=== PATIENT | male | born 1960 | race Caucasian/White ===

== ENCOUNTER 2018-01-18 01:05 | Outpatient (CLI) | payer MEDICAID, SELFPAY ==
--- NOTE | 2018-01-18 08:34 | DI.US_ITS ---
SYMPTOMS/DIAGNOSIS: FATTY LIVER, K76.0 ABDOMINAL ULTRASOUND: Routine examination. Comparison is 02/07/17. The aorta and IVC are of normal caliber. The liver is enlarged measuring 19 cm in length. There is diffuse increased echogenicity of the liver consistent with fatty infiltration. No hepatic masses seen. The portal vein is antegrade. The gallbladder is negative sonographically. No biliary ductal dilatation is seen. The pancreas, kidneys and spleen are unremarkable. IMPRESSION: Hepatomegaly and hepatic steatosis.
== END 2018-01-18 01:25 ==
PROVIDERS: PCP Nurse Practitioner Family; Visit Provider Nurse Practitioner Family
DX: K76.0 Fatty (change of) liver, not elsewhere classified (principal); R16.0 Hepatomegaly, not elsewhere classified
CPT/HCPCS: 76700

== ENCOUNTER 2018-05-30 09:31 | Outpatient (REF) | payer MEDICAID, SELFPAY ==
[2018-05-30 13:04] LABS: ALT 35 U/L (12-78); AST 18 U/L (15-37); Alkaline Phosphatase 78 U/L (46-116); Anion Gap 7.8 mmol/L (3-11); BUN 14 mg/dL (7-18); Bilirubin, Total 0.6 mg/dL (0.2-1.0); CO2 25.2 mmol/L (21.0-32.0); CREATININE 0.85 mg/dL (0.70-1.30); Chloride 105 mmol/L (98-107); Ferritin 177 ng/mL (8-388); Glucose 100 mg/dL (70-100); Potassium 4.7 mmol/L (3.5-5.1); Sodium 138 mmol/L (136-145); TSH (W/Ref FT4) 0.59 uIU/mL (0.358-3.74); Total Protein 6.9 g/dL (6.4-8.2); Vitamin B12 553 pg/mL (193-986)
[2018-05-31 09:51] LABS: Hepatitis C Ab w Rflx HCV PCR Negative (NEGAT)
== END 2018-05-30 09:51 ==
LOC: NCHCN 09:31
PROVIDERS: PCP Nurse Practitioner Family; Visit Provider Nurse Practitioner Family
DX: I10 Essential (primary) hypertension (principal); E78.5 Hyperlipidemia, unspecified; K21.9 Gastro-esophageal reflux disease without esophagitis; K76.0 Fatty (change of) liver, not elsewhere classified; E04.1 Nontoxic single thyroid nodule; F41.9 Anxiety disorder, unspecified; G47.33 Obstructive sleep apnea (adult) (pediatric); M54.2 Cervicalgia; Z11.59 Encounter for screening for other viral diseases; M25.50 Pain in unspecified joint
CPT/HCPCS: 80053; 86803; 82607; 82728; 83735; 84443

== ENCOUNTER 2018-06-06 00:17 | Outpatient (CLI) | payer MEDICAID, SELFPAY ==
--- NOTE | 2018-06-06 08:16 | DI.US_ITS ---
SYMPTOM/DIAGNOSIS: FAMILY H/O AAA, Z82.49, SCREENING FOR AAA AORTA ULTRASOUND: Sonographic evaluation of the abdominal aorta was performed. There is no evidence of an abdominal aortic aneurysm. Maximum diameter of the abdominal aorta is seen proximally and is 2.2 cm. The right iliac measures 1.4 by 1.3 cm. The left iliac measures 1.6 by 1.1 cm. IMPRESSION: No evidence of an abdominal aortic aneurysm.
== END 2018-06-06 00:37 ==
PROVIDERS: PCP Nurse Practitioner Family; Visit Provider Nurse Practitioner Family
DX: Z13.6 Encounter for screening for cardiovascular disorders (principal); Z82.49 Family history of ischemic heart disease and other diseases of the circulatory system
CPT/HCPCS: 76706

== ENCOUNTER 2019-04-18 08:46 | Outpatient (REF) | payer MEDICAID, SELFPAY ==
[2019-04-18 13:50] LABS: ALT 49 U/L (16-63); AST 31 U/L (15-37); Albumin 3.8 g/dL (3.4-5.0); Alkaline Phosphatase 66 U/L (46-116); Anion Gap 10.5 mmol/L (3-11); BUN 15 mg/dL (7-18); Bilirubin, Total 0.6 mg/dL (0.2-1.0); CO2 25.5 mmol/L (21.0-32.0); CREATININE 0.89 mg/dL (0.70-1.30); Calcium 8.8 mg/dL (8.5-10.1); Chloride 106 mmol/L (98-107); Glucose 101 mg/dL (74-106); Magnesium 1.8 mg/dL (1.8-2.4); Potassium 4.3 mmol/L (3.5-5.1); Sodium 142 mmol/L (136-145); TSH (W/Ref FT4) 0.76 uIU/mL (0.36-3.74); Total Protein 6.3 g/dL (6.4-8.2); Vitamin B12 445 pg/mL (193-986)
== END 2019-04-18 09:06 ==
LOC: NCHCN 08:46
PROVIDERS: PCP Nurse Practitioner Family; Visit Provider Nurse Practitioner Family
DX: R53.83 Other fatigue (principal); F41.9 Anxiety disorder, unspecified; K76.0 Fatty (change of) liver, not elsewhere classified; E04.1 Nontoxic single thyroid nodule; M54.2 Cervicalgia; G47.33 Obstructive sleep apnea (adult) (pediatric); E66.3 Overweight
CPT/HCPCS: 80053; 82607; 83735; 84443

== ENCOUNTER 2019-07-22 09:55 | Outpatient (CLI) | payer MEDICAID, SELFPAY ==
[2019-07-26 00:05] LABS: SARS-CoV-2 RNA Undetected (Undetected); SARS-CoV-2 Specimen Source Nasopharynx
== END 2019-07-22 10:15 ==
PROVIDERS: PCP Nurse Practitioner Family; Visit Provider Nurse Practitioner Family
DX: Z11.59 Encounter for screening for other viral diseases (principal)
CPT/HCPCS: U0003

== ENCOUNTER 2019-11-12 00:34 | Outpatient (CLI) | payer MEDICAID, SELFPAY ==
--- NOTE | 2019-11-12 | DI.US_ITS ---
EXAM: US ABDOMEN CLINICAL HISTORY: FATTY LIVER, K76.0 TECHNIQUE: Ultrasound performed using standard protocol. COMPARISON: No exams were available for comparison FINDINGS: The liver is enlarged, measuring 17.9 cm in length. There is mild diffuse increased liver echogenic ity, consistent with hepatic steatosis. Gallbladder is unremarkable, without evidence of stones or w all thickening. There is no biliary dilatation. Pancreas, spleen and kidneys are unremarkable. The re is no ascites. IMPRESSION: Mildly enlarged liver with mild hepatic steatosis. DATA REPOSITORY:
== END 2019-11-12 00:54 ==
PROVIDERS: PCP Nurse Practitioner Family; Visit Provider Nurse Practitioner Family
DX: K76.0 Fatty (change of) liver, not elsewhere classified (principal)
CPT/HCPCS: 76700

== ENCOUNTER 2020-04-27 09:46 | Outpatient (REF) | payer MEDICAID, SELFPAY ==
[2020-04-27 13:43] LABS: Abs Immature Grans 0.01 10^3/uL (0.0-0.06); Absolute Basophil Count 0.03 10^3/uL (0.0-0.2); Absolute Eosinophil Count 0.27 10^3/uL (0.0-0.7); Absolute Lymphocyte Count 0.99 10^3/uL (1.2-3.4); Absolute Monocyte Count 0.69 10^3/uL (0.1-0.8); Basophils % 0.5; Eosinophils % 4.8; HCT 44.5 % (40.0-50.0); HGB 15.2 g/dL (13.5-17.5); Immature Grans % 0.2; Lymphocytes % 17.7; MCH 30.2 pg (27.0-33.0); MCHC 34.2 % (32.0-36.0); MCV 88.5 fL (80-95); Monocytes % 12.3; Neutrophils % 64.5; Nucleated RBC 0 %; Platelet Count 255 10^3/uL (130-400); RBC 5.03 10^6/uL (4.36-5.78); RDW-SD 39.3 fL; WBC 5.59 10^3/uL (4.4-10.8)
[2020-04-27 14:19] LABS: ALT 35 U/L (16-63); AST 18 U/L (15-37); Albumin 3.9 g/dL (3.4-5.0); Alkaline Phosphatase 76 U/L (46-116); Anion Gap 9.8 mmol/L (3-11); BUN 16 mg/dL (7-18); Bilirubin, Total 0.6 mg/dL (0.2-1.0); CO2 24.2 mmol/L (21.0-32.0); CREATININE 0.95 mg/dL (0.70-1.30); Calcium 8.5 mg/dL (8.5-10.1); Chloride 106 mmol/L (98-107); FREE T4 0.82 ng/dL (0.76-1.46); Glucose 102 mg/dL (74-106); Magnesium 1.9 mg/dL (1.8-2.4); Potassium 4.3 mmol/L (3.5-5.1); Sodium 140 mmol/L (136-145); TSH 0.48 uIU/mL (0.36-3.74); Total Protein 6.3 g/dL (6.4-8.2)
[2020-04-27 14:57] LABS: Vitamin B12 508 pg/mL (193-986)
[2020-04-27 21:37] LABS: T3,Free 3.5 pg/mL (2.8-5.3)
== END 2020-04-27 10:06 ==
LOC: NCHCN 09:46
PROVIDERS: PCP Nurse Practitioner Family; Visit Provider Nurse Practitioner Family
DX: I10 Essential (primary) hypertension (principal); E04.1 Nontoxic single thyroid nodule; F41.9 Anxiety disorder, unspecified; K76.0 Fatty (change of) liver, not elsewhere classified; K21.9 Gastro-esophageal reflux disease without esophagitis; G47.33 Obstructive sleep apnea (adult) (pediatric); M54.2 Cervicalgia
CPT/HCPCS: 80053; 82607; 83735; 84439; 84443; 84481; 85025

== ENCOUNTER 2020-05-06 02:54 | Outpatient (CLI) | payer MEDICAID, SELFPAY ==
--- NOTE | 2020-05-06 | DI.US_ITS ---
EXAM: US AAA SCREENING CLINICAL HISTORY: SCREENING FOR AAA, FAMILY H/O AAA,Z82.49 COMPARISON: US US AAA screening from 06/06/2018 FINDINGS: Abdominal Aorta: Proximal: 2.5 x 2.7 cm Mid: 2.7 x 2.6 cm Distal: 2.2 x 2.1 cm Iliac's: Right: 1.3 x 1.6 cm Left: 1.2 x 1.7 cm Mild atherosclerotic disease. IMPRESSION: No evidence of abdominal aortic aneurysm. DATA REPOSITORY:
--- NOTE | 2020-05-06 | DI.US_ITS ---
EXAM: US THYROID CLINICAL HISTORY: THYROID NODULE, E04.1. TECHNIQUE: Ultrasound thyroid performed using standard protocol. COMPARISON: No exams were available for comparison FINDINGS: ISTHMUS: 5 mm RIGHT LOBE: Size: 4.1 x 1.5 x 1.3 cm Echogenicity: Normal. Vascularity: Normal. Nodules: There is a 0.6 x 0.4 x 0.4 cm solid hypoechoic well-marginated nodule in the lower pole of t he right lobe. No echogenic foci are seen. This corresponds to a TI-RADs level 4 nodule. LEFT LOBE: Size: 5.5 x 2.7 x 3.7 cm Echogenicity: Normal. Vascularity: Normal. Nodules: There is a mixed cystic and solid 3.5 x 2.4 x 3.8 cm nodule. The solid components appear is oechoic. The margins are well circumscribed. There do appear to be few echogenic foci noted. This corresponds to a TI-RADs level 4 nodule. OTHER FINDINGS: None. IMPRESSION: Bilateral thyroid nodules as described above. DATA REPOSITORY:
== END 2020-05-06 03:14 ==
PROVIDERS: PCP Nurse Practitioner Family; Visit Provider Nurse Practitioner Family
DX: Z82.49 Family history of ischemic heart disease and other diseases of the circulatory system (principal); E04.2 Nontoxic multinodular goiter
CPT/HCPCS: 76706; 76536

== ENCOUNTER 2020-06-28 00:49 | Outpatient (CLI) | payer MEDICAID, SELFPAY ==
--- NOTE | 2020-06-28 | DI.US_ITS ---
EXAM: US NEEDLE LOCAL OTHER WO RAD CLINICAL HISTORY: LT THYROID NODULE, E04.1,ULTRASOUND GUIDED FINE NEEDLE ASPIRATION. COMPARISON: US US THYROID from 05/06/2020 Procedure: Ultrasound guidance was provided during left thyroid nodule FNA. Radiologist not present . FINDINGS: IMPRESSION: DATA REPOSITORY:
--- NOTE | 2020-06-28 08:15 | PAPNONF_PTH ---
PATIENT: Moisés Lantigua LOC: [facility] U#:[id number] AGE/SX: 59/M ROOM: RE06/28/[address]: Jian Ryan MD : 1960 BED: DIS: 06/28/2020 SPEC #: [id number] RECD: 06/28/20 12:55 STATUS: LINO REMaya #: [id number] CANDI: 06/28/20 08:[address]: Jian Ryan DEPT: [facility] Cytology RECD BY: Dixie Rosado ENTERED: 06/28/20 12:55 SP TYPE: HUSAM STORM DR: Trudi Irby Tissues: 1 - BODY FLUID CYTO-FINE NEEDLE ASPIRATE-[facility] Procedures: BODY FLUID CYTO-FINE NEEDLE ASPIRATE-[facility] Comments: [id number]
--- NOTE | 2020-06-28 12:55 | OPPNE_ITS ---
Procedure Note Date of procedure: 06/28/20 Procedure: Ultrasound-guided FNA of the left thyroid nodule with pathologist present Surgeon/Proceduralist/Physician: Jian Ryan Procedure Diagnosis: Left thyroid complex nodule Procedure Indications: The patient has a left-sided large thyroid nodule that is mixed cystic/solid. Previous FNA was nondiagnostic. Options were explained to the patient regarding further management. Risks were discussed. Consent was obtained. The below was then performed. Procedure Description: The patient was positioned in the supine position and prepped and draped in appropriate fashion. The left thyroid nodule was identified using ultrasound, and then the skin anesthetized medial to the thyroid nodule. Multiple passes were made with 25- gauge 1.5Inch needles and the specimen was handed to pathology. I was able to obtain 5 clusters of cells based on pathology evaluation, and then I also performed a Secondary aspiration of material for CytoLyt. This was also provided to the pathologist. Of note, these biopsies were complicated by the cystic and vascular quality of this nodule, which continue to be an issue despite trying to obtain specimens from different locations within the nodule. The patient tolerated procedure well. His vital signs remained stable. Bleeding was minimal and self-limited. There was no significant bruising. A sterile dressing was applied. The patient was able to ambulate afterwards without difficulty. There was no evidence of hematoma.
== END 2020-06-28 01:09 ==
PROVIDERS: PCP Nurse Practitioner Family; Visit Provider Otolaryngology
DX: E04.1 Nontoxic single thyroid nodule (principal)
CPT/HCPCS: 10005; 88142; 76942; 88104

== ENCOUNTER 2020-11-29 02:45 | Outpatient (CLI) | payer MEDICAID, SELFPAY ==
[2020-11-29 12:37] LABS: Source Nasal/Nares
[2020-11-29 15:35] LABS: COVID-19 PCR Negative (Negative)
== END 2020-11-29 02:46 | disposition home or self-care (01) ==
PROVIDERS: PCP Nurse Practitioner Family; Visit Provider Podiatrist Foot & Ankle Surgery
DX: Z20.822 Contact with and (suspected) exposure to COVID-19 (principal); Z01.818 Encounter for other preprocedural examination
CPT/HCPCS: 87635

== ENCOUNTER 2021-05-02 15:21 | Outpatient (REF) | payer MEDICAID, SELFPAY ==
[2021-05-02 16:02] LABS: Abs Immature Grans 0.02 10^3/uL (0.0-0.06); Absolute Basophil Count 0.04 10^3/uL (0.0-0.2); Absolute Eosinophil Count 0.16 10^3/uL (0.0-0.7); Absolute Lymphocyte Count 0.97 10^3/uL (1.2-3.4); Absolute Monocyte Count 0.55 10^3/uL (0.1-0.8); Absolute Neutrophil Count 3.39 10^3/uL (1.2-6.7); Basophils % 0.8; Eosinophils % 3.1; HCT 45.8 % (40.0-50.0); HGB 15.3 g/dL (13.5-17.5); Immature Grans % 0.4; Lymphocytes % 18.9; MCH 29.9 pg (27.0-33.0); MCHC 33.4 % (32.0-36.0); MCV 89.6 fL (80-95); MPV 10.2 fL (8.0-11.0); Monocytes % 10.7; Neutrophils % 66.1; Nucleated RBC 0 %; Platelet Count 259 10^3/uL (130-400); RBC 5.11 10^6/uL (4.36-5.78); RDW-SD 39.6 fL; WBC 5.13 10^3/uL (4.4-10.8)
[2021-05-02 16:46] LABS: ALT 38 U/L (16-63); AST 17 U/L (15-37); Albumin 4.1 g/dL (3.4-5.0); Alkaline Phosphatase 70 U/L (46-116); Anion Gap 9.7 mmol/L (3-11); BUN 19 mg/dL (7-18); Bilirubin, Total 0.5 mg/dL (0.2-1.0); CO2 23.3 mmol/L (21.0-32.0); CREATININE 0.9 mg/dL (0.70-1.30); Calcium 8.8 mg/dL (8.5-10.1); Chloride 106 mmol/L (98-107); Glucose 106 mg/dL (74-106); Magnesium 1.8 mg/dL (1.8-2.4); Potassium 4.2 mmol/L (3.5-5.1); Sodium 139 mmol/L (136-145); TSH 0.52 uIU/mL (0.36-3.74); Total Protein 6.5 g/dL (6.4-8.2); Vitamin B12 478 pg/mL (193-986)
[2021-05-02 17:04] LABS: FREE T4 0.83 ng/dL (0.76-1.46)
[2021-05-02 21:42] LABS: T3,Free 3.9 pg/mL (2.8-5.3)
[2021-05-02 22:33] LABS: PSA, Screening 0.6 ng/mL (0.0-4.5)
== END 2021-05-02 15:22 | disposition home or self-care (01) ==
LOC: NCHCN 15:21
PROVIDERS: PCP Nurse Practitioner Family; Visit Provider Nurse Practitioner Family
DX: I10 Essential (primary) hypertension (principal); E04.1 Nontoxic single thyroid nodule; Z12.5 Encounter for screening for malignant neoplasm of prostate; G31.84 Mild cognitive impairment of uncertain or unknown etiology; D12.6 Benign neoplasm of colon, unspecified
CPT/HCPCS: 80053; 84153; 82607; 83735; 84439; 84443; 84481; 85025

== ENCOUNTER 2021-05-30 00:18 | Outpatient (CLI) | payer MEDICAID, SELFPAY ==
--- NOTE | 2021-05-30 | DI.US_ITS ---
Exam(s) US ABDOMEN EXAM: US ABDOMEN CLINICAL HISTORY: FATTY LIVER, K76.0 TECHNIQUE: Ultrasound of complete upper abdomen performed using standard protocol. COMPARISON: US US ABDOMEN from 01/18/2018 US US AAA screening from 06/06/2018 Ultrasound 01/18/2018 FINDINGS: There is no ascites evident. LIVER: Liver is hyperechoic indicating steatosis. No obvious discrete focal hepatic lesions evident. GALLBLADDER/BILIARY: There are no gallstones. No gallbladder wall edema nor pericholecystic fluid. The common hepatic duct isnot dilated, measuring 3mm at the level of marianne hepatis. PANCREAS: There is no evidence of pancreatic mass nor dilatation of the pancreatic duct. SPLEEN: The spleen size is upper normal and there are no intrasplenic lesions evident. KIDNEYS:Kidneys exhibit normal size with no evidence of solid mass, calculus, nor hydronephrosis. No cortical cysts evident. ABDOMINAL AORTA: There is no evidence of abdominal aortic aneurysm. IVC: Normal diameter where visualized. IMPRESSION: 1. No evidence of cholelithiasis nor dilatation of the biliary tree. 2. Hepatic steatosis. Liver size also slightly prominent. There are no discrete focal hepatic lesi ons 3. There is no ascites. DATA REPOSITORY:
--- NOTE | 2021-05-30 07:54 | DI.RAD_ITS ---
Exam(s) XR CHEST 2V PA LATERAL EXAM: XR CHEST 2V PA LATERAL CLINICAL HISTORY: COUGH,R05. TECHNIQUE: 2D digital imaging was performed. COMPARISON: No exams were available for comparison FINDINGS: Heart size is normal. The mediastinum is not widened. Lungs are clear. No infiltrates nor pleural effusions. IMPRESSION: No acute pulmonary findings. DATA REPOSITORY: RADIATION DOSE DELIVERED:
== END 2021-05-30 00:38 ==
PROVIDERS: PCP Nurse Practitioner Family; Visit Provider Nurse Practitioner Family
DX: R05.8 Other specified cough (principal); K76.0 Fatty (change of) liver, not elsewhere classified; R16.0 Hepatomegaly, not elsewhere classified
CPT/HCPCS: 71046; 76700

== ENCOUNTER 2021-06-01 01:39 | Outpatient (CLI) | payer MEDICAID, SELFPAY ==
--- NOTE | 2021-06-01 06:45 | DI.MRI_ITS ---
Exam(s) MR BRAIN WO EXAM: MR BRAIN WO CLINICAL HISTORY: memory changes,mild cognitive impairment,g31.84 TECHNIQUE: Multiplanar multisequence MRI of the brain was performed. COMPARISON: No exams were available for comparison FINDINGS: The examination is limited due to patient motion artifact. VENTRICLES AND EXTRA AXIAL SPACES: Normal in size and morphology for the patient's age. MIDLINE SHIFT: None. CEREBRAL PARENCHYMA: No focus of restricted diffusion to suggest acute infarct. No space-occupying le pat identified. There are multiple areas of hyperintense signal in the white matter on the FLAIR and T2 weighted images likely reflecting chronic microvascular ischemic disease. HEMORRHAGE: None. BRAINSTEM/CEREBELLUM: Normal. CALVARIUM: Normal. VISUALIZED PARANASAL SINUSES/MASTOIDS:There is pansinusitis with mucosal thickening in the frontal si nuses, sphenoid sinuses and maxillary sinuses bilaterally. There is opacification of the ethmoid air cells. No fluid levels are present. CHIGNIK L[place] OF RASHID: Normal flow void. PITUITARY GLAND: Unremarkable. OTHER FINDINGS: None. IMPRESSION: 1. No acute infarct or intracranial mass. 2. Findings suggestive of chronic microvascular ischemic disease. 3. Pansinusitis. DATA REPOSITORY:
== END 2021-06-01 01:59 ==
PROVIDERS: PCP Nurse Practitioner Family; Visit Provider Nurse Practitioner Adult Health
DX: G31.84 Mild cognitive impairment of uncertain or unknown etiology (principal); R90.82 White matter disease, unspecified; J32.4 Chronic pansinusitis; I67.2 Cerebral atherosclerosis
CPT/HCPCS: 70551

== ENCOUNTER 2021-07-05 00:52 | Outpatient (CLI) | payer MEDICAID, SELFPAY ==
--- NOTE | 2021-07-05 07:15 | DI.US_ITS ---
Exam(s) US THYROID EXAM: US THYROID CLINICAL HISTORY: Thyroid nodule, assess stability,e04.1. TECHNIQUE: Ultrasound thyroid performed using standard protocol. COMPARISON: US US THYROID from 05/06/2020 FINDINGS: ISTHMUS: 5 mm RIGHT LOBE: Size: 5.5 x 1.5 x 1.4 cm cm Echogenicity: Normal. Vascularity: Normal. Nodules: 8 x 5 x 5 millimeter hypoechoic nodule lower pole, not well demonstrated on the current exam . Too small to characterize.. LEFT LOBE: Size: 5.7 x 4.1 x 4.6 cm cm Echogenicity: Normal. Vascularity: Normal. Nodules: 3.8 x 3.0 x 4 centimeter circumscribed, mixed solid and cystic nodule containing echogenic f oci. TR 4. No new nodules. OTHER FINDINGS: No adenopathy. IMPRESSION: Stable appearance of large nodule in the left lobe of the thyroid.. DATA REPOSITORY:
== END 2021-07-05 01:12 ==
PROVIDERS: PCP Nurse Practitioner Family; Visit Provider Otolaryngology
DX: E04.1 Nontoxic single thyroid nodule (principal)
CPT/HCPCS: 76536

== ENCOUNTER 2022-03-02 11:23 | Outpatient (REF) | payer MEDICAID, SELFPAY ==
[2022-03-02 14:40] LABS: Abs Immature Grans 0.01 10^3/uL (0.0-0.06); Absolute Basophil Count 0.04 10^3/uL (0.0-0.2); Absolute Eosinophil Count 0.28 10^3/uL (0.0-0.7); Absolute Lymphocyte Count 0.97 10^3/uL (1.2-3.4); Absolute Neutrophil Count 2.89 10^3/uL (1.2-6.7); Basophils % 0.8; Eosinophils % 5.7; HCT 44.9 % (40.0-50.0); HGB 15.2 g/dL (13.5-17.5); Immature Grans % 0.2; Lymphocytes % 19.8; MCH 30.1 pg (27.0-33.0); MCHC 33.9 % (32.0-36.0); MCV 89 fL (80-95); MPV 9.7 fL (8.0-11.0); Monocytes % 14.3; Neutrophils % 59.2; Platelet Count 256 10^3/uL (130-400); RBC 5.05 10^6/uL (4.36-5.78); RDW 12.1 % (11.8-14.1); RDW-SD 39.8 fL; WBC 4.89 10^3/uL (4.4-10.8)
[2022-03-02 14:47] LABS: ESR 3 mm/hr (0-20)
[2022-03-02 14:53] LABS: C-Reactive Protein 0.13 mg/dL (0.0-0.3)
[2022-03-02 22:31] LABS: Rheumatoid Factor <8.6 IU/mL (<12.0)
[2022-03-03 07:57] LABS: Cyclic Citrullinated Peptide <2.5 U/mL (<5.0)
[2022-03-03 13:59] LABS: ANA Interpretation Negative (Negative)
== END 2022-03-02 11:24 | disposition home or self-care (01) ==
LOC: NCHCN 11:23
PROVIDERS: PCP Nurse Practitioner Family; Visit Provider Nurse Practitioner Family
DX: M25.511 Pain in right shoulder (principal); M25.512 Pain in left shoulder; L40.8 Other psoriasis; Z82.49 Family history of ischemic heart disease and other diseases of the circulatory system; K76.0 Fatty (change of) liver, not elsewhere classified; E78.5 Hyperlipidemia, unspecified; R19.7 Diarrhea, unspecified; M54.2 Cervicalgia
CPT/HCPCS: 85652; 86200; 85025; 86038; 86140; 86431

== ENCOUNTER 2022-07-03 13:16 | Outpatient (REF) | payer MEDICAID, SELFPAY ==
[2022-07-03 15:28] LABS: Abs Immature Grans 0.01 10^3/uL (0.0-0.06); Absolute Basophil Count 0.04 10^3/uL (0.0-0.2); Absolute Eosinophil Count 0.26 10^3/uL (0.0-0.7); Absolute Lymphocyte Count 1.19 10^3/uL (1.2-3.4); Absolute Monocyte Count 0.67 10^3/uL (0.1-0.8); Absolute Neutrophil Count 3.14 10^3/uL (1.2-6.7); Basophils % 0.8; Eosinophils % 4.9; HCT 45.7 % (40.0-50.0); HGB 15.9 g/dL (13.5-17.5); Immature Grans % 0.2; Lymphocytes % 22.4; MCH 30.6 pg (27.0-33.0); MCHC 34.8 % (32.0-36.0); MCV 88 fL (80-95); MPV 9.5 fL (8.0-11.0); Monocytes % 12.6; Neutrophils % 59.1; Platelet Count 258 10^3/uL (130-400); RDW 12.1 % (11.8-14.1); RDW-SD 38.8 fL; WBC 5.31 10^3/uL (4.4-10.8)
[2022-07-03 16:36] LABS: ALT 43 U/L (16-63); AST 20 U/L (15-37); Albumin 4.2 g/dL (3.4-5.0); Alkaline Phosphatase 76 U/L (46-116); Anion Gap 9.1 mmol/L (3-11); BUN 17 mg/dL (7-18); CO2 23.9 mmol/L (21.0-32.0); Calcium 9.1 mg/dL (8.5-10.1); Chloride 107 mmol/L (98-107); Estimated GFR 84.57 (mL/min/1.73m2); Glucose 108 mg/dL (74-106); Magnesium 2.1 mg/dL (1.8-2.4); Potassium 4.7 mmol/L (3.5-5.1); Sodium 140 mmol/L (136-145); Total Protein 6.6 g/dL (6.4-8.2); Vitamin B12 548 pg/mL (193-986)
[2022-07-03 18:58] LABS: Bilirubin, Total 0.5 mg/dL (0.2-1.0); FREE T4 0.82 ng/dL (0.76-1.46)
[2022-07-03 22:07] LABS: T3,Free 4.1 pg/mL (2.8-5.3)
== END 2022-07-03 13:17 | disposition home or self-care (01) ==
LOC: NCHCN 13:16
PROVIDERS: PCP Nurse Practitioner Family; Visit Provider Nurse Practitioner Family
DX: I10 Essential (primary) hypertension (principal); K21.9 Gastro-esophageal reflux disease without esophagitis; R41.9 Unspecified symptoms and signs involving cognitive functions and awareness; G47.33 Obstructive sleep apnea (adult) (pediatric); M54.2 Cervicalgia
CPT/HCPCS: 80053; 82607; 83735; 84439; 84443; 84481; 85025

== ENCOUNTER 2022-07-19 01:12 | Outpatient (CLI) | payer MEDICAID, SELFPAY ==
--- NOTE | 2022-07-19 | DI.US_ITS ---
Exam(s) US AAA SCREENING EXAM: US AAA SCREENING CLINICAL HISTORY: FAMILY H/O AAA, Z82.49, SCREENING FOR AAA COMPARISON: US US AAA SCREENING from 05/06/2020 FINDINGS: Abdominal Aorta: Proximal: 2.8 cm Mid: 2.5 cm Distal: 2.1 cm Iliacs: Right: 1.4 cm Left: 1.4 cm IMPRESSION: No evidence of abdominal aortic aneurysm. DATA REPOSITORY:
--- NOTE | 2022-07-19 | DI.US_ITS ---
Exam(s) US ABDOMEN LIMITED EXAM: US ABDOMEN LIMITED CLINICAL HISTORY: FATTY LIVER, K76.0 TECHNIQUE: Ultrasound abdomen performed using standard protocol. COMPARISON: US US ABDOMEN from 05/30/2021 FINDINGS: LIVER: Mildly enlarged. Mild to moderate increasedechogenicity. No focal liver lesions are seen.. GALLBLADDER: No evidence of cholelithiasis. No evidence of wall thickening. No pericholecystic fluid identified. HAMEED'S SIGN: Negative. BILIARY SYSTEM: No intrahepatic or extrahepatic biliary ductal dilation. RIGHT KIDNEY: Normal size. No evidence of renal calculi. No evidence of hydronephrosis. No suspicious renal mass. No cyst identified. PANCREAS: Normal where visualized. ABDOMINAL AORTA AND IVC: Visualized portions normal caliber. ASCITES: None seen. IMPRESSION: [id number] hepatic steatosis. The may be some improvement in the degree of fatty infiltration compared to the previous exam. DATA REPOSITORY:
== END 2022-07-19 01:32 ==
LOC: DI 01:13
PROVIDERS: PCP Nurse Practitioner Family; Visit Provider Nurse Practitioner Family
DX: Z13.6 Encounter for screening for cardiovascular disorders (principal); Z82.49 Family history of ischemic heart disease and other diseases of the circulatory system; K76.0 Fatty (change of) liver, not elsewhere classified; R16.0 Hepatomegaly, not elsewhere classified
CPT/HCPCS: 76706; 76705

== ENCOUNTER 2022-09-20 09:19 | Outpatient (REF) | payer MEDICAID, SELFPAY ==
[2022-09-20 16:56] LABS: TSH (W/Ref FT4) 0.64 uIU/mL (0.36-3.74)
[2022-09-21 18:21] LABS: T3,Free 4.4 pg/mL (2.8-5.3)
== END 2022-09-20 09:20 | disposition home or self-care (01) ==
LOC: NCHCN 09:19
PROVIDERS: PCP Nurse Practitioner Family; Visit Provider Nurse Practitioner Family
DX: E05.90 Thyrotoxicosis, unspecified without thyrotoxic crisis or storm (principal); E04.1 Nontoxic single thyroid nodule
CPT/HCPCS: 84443; 84481

== ENCOUNTER → 2023-07-23 02:39 | Outpatient (CLI) | payer MEDICAID, SELFPAY ==
--- NOTE | 2023-07-23 | DI.US_ITS ---
Exam(s) US ABDOMEN LIMITED EXAM: US ABDOMEN LIMITED CLINICAL HISTORY: STEATOSIS OF LIVER,K76.0 TECHNIQUE: Ultrasound abdomen performed using standard protocol. COMPARISON: US US ABDOMEN LIMITED from 07/19/2022 FINDINGS: There is no ascites evident. LIVER: Liver is hyperechoic indicating steatosis. Similar to previous GALLBLADDER/BILIARY: There are no gallstones. No gallbladder wall edema nor pericholecystic fluid. The common hepatic duct isnot dilated, measuring 4-5mm at the level of marianne hepatis. PANCREAS: There is no evidence of pancreatic mass nor dilatation of the pancreatic duct. RIGHT KIDNEY:No evidence of solid mass, calculus, nor hydronephrosis. No cortical cysts evident. IMPRESSION: 1. No evidence of cholelithiasis nor dilatation of the biliary tree. 2. Hepatic steatosis again noted. There are no discrete focal hepatic lesions evident. 3. No other right upper quadrant ultrasound findings and there is no ascites. DATA REPOSITORY:
== END ==
PROVIDERS: PCP Nurse Practitioner Family; Visit Provider Nurse Practitioner Family
DX: K76.0 Fatty (change of) liver, not elsewhere classified (principal)
CPT/HCPCS: 76705

== ENCOUNTER 2023-07-31 04:12 | Outpatient (CLI) | payer MEDICAID, SELFPAY ==
[2023-07-31] MEDS: Levalbuterol HFA 15 GM INH 4 PUFF IH (09:04)
[2023-07-31] MEDS: Inhaler, Assist Device 1 EACH MC (09:04)
--- NOTE | 2023-07-31 10:33 | W.PFT ---
Date of service: 07/31/23 Time of Service: 08:07 Pulmonary Function Test Result Indications: Dyspnea Interpretation Spirometry: There is no airflow limitation. No bronchodilator response. Lung Volumes: Normal lung volumes Diffusion Capacity: Normal diffusion Airway Pressure: Normal airways resistance Impression Normal pulmonary function testing Clinical Correlation therefore is recommended.
== END 2023-07-31 04:13 | disposition home or self-care (01) ==
LOC: RT 04:12
PROVIDERS: PCP Nurse Practitioner Family; Visit Provider Nurse Practitioner Family
DX: R05.3 Chronic cough (principal)
CPT/HCPCS: 94060; 94726; 94729

== ENCOUNTER 2023-08-02 16:53 | Outpatient (REF) | payer MEDICAID, SELFPAY ==
[2023-08-02 16:17] LABS: Abs Immature Grans 0.02 10^3/uL (0.0-0.06); Absolute Basophil Count 0.05 10^3/uL (0.0-0.2); Absolute Eosinophil Count 0.23 10^3/uL (0.0-0.7); Absolute Lymphocyte Count 1.25 10^3/uL (1.2-3.4); Absolute Neutrophil Count 3.22 10^3/uL (1.2-6.7); Basophils % 0.9; Eosinophils % 4.2; HCT 47.2 % (40.0-50.0); Immature Grans % 0.4; Lymphocytes % 22.9; MCH 30.1 pg (27.0-33.0); MCHC 33.9 % (32.0-36.0); MCV 89 fL (80-95); MPV 9.9 fL (8.0-11.0); Monocytes % 12.8; Neutrophils % 58.8; Platelet Count 252 10^3/uL (130-400); RBC 5.31 10^6/uL (4.36-5.78); RDW 12.2 % (11.8-14.1); RDW-SD 40.2 fL; WBC 5.47 10^3/uL (4.4-10.8)
[2023-08-02 16:32] LABS: ALT 43 U/L (16-63); AST 23 U/L (15-37); Albumin 4.3 g/dL (3.4-5.0); Alkaline Phosphatase 77 U/L (46-116); Anion Gap 9.1 mmol/L (3-11); BUN 16 mg/dL (7-18); Bilirubin, Total 0.7 mg/dL (0.2-1.0); CO2 26.9 mmol/L (21.0-32.0); Chloride 106 mmol/L (98-107); Estimated GFR 84.05 (mL/min/1.73m2); FREE T4 0.74 ng/dL (0.76-1.46); Glucose 99 mg/dL (74-106); Magnesium 2.1 mg/dL (1.8-2.4); Potassium 5.1 mmol/L (3.5-5.1); Sodium 142 mmol/L (136-145); TSH 0.67 uIU/Ml (0.36-3.74); Total Protein 6.9 g/dL (6.4-8.2)
[2023-08-02 17:20] LABS: Hemoglobin A1C 5.8 % (<5.7)
[2023-08-02 17:28] LABS: Calculated LDL 117 mg/dL (<100); Cholesterol 226 mg/dL (<200); HDL Cholesterol 40 mg/dL (40-60); Triglyceride 345 mg/dL (<150); Vitamin B12 499 pg/mL (193-986)
[2023-08-02 23:07] LABS: T3,Free 4.3 pg/mL (2.8-5.3)
[2023-08-03 00:48] LABS: PSA, Screening 0.9 ng/mL (<=4.5); Thyroglobulin Antibody <15 U/mL (<=60)
== END 2023-08-02 16:54 | disposition home or self-care (01) ==
LOC: NCHCN 16:53
PROVIDERS: PCP Nurse Practitioner Family; Visit Provider Nurse Practitioner Family
DX: E05.90 Thyrotoxicosis, unspecified without thyrotoxic crisis or storm (principal); K76.0 Fatty (change of) liver, not elsewhere classified; R39.9 Unspecified symptoms and signs involving the genitourinary system; I10 Essential (primary) hypertension
CPT/HCPCS: 80053; 80061; 84153; 82607; 83036; 83735; 84439; 84443; 84481; 85025; 86800

== ENCOUNTER 2023-09-05 06:53 | Day surgery (SDC) | payer MEDICAID, SELFPAY ==
[2023-09-05 07:18] VITALS: BP 148/94; PULSE 54; RESP 16; TEMP 36.5; O2SAT 97
[2023-09-05] MEDS: Lactated Ringers 1,000 ML 80 ML IV (07:31)
--- NOTE | 2023-09-05 08:03 | ANES.PREOP_ITS ---
General Info Date of Service Date Performed: 09/05/23 Height: 6 ft 1 in Weight: 101 kg Body Mass Index (BMI): 29.3 Surgical Procedure: Operation Date: 09/05/23 08:35 Proposed Procedure Side Surgeon tonia Valero MD Meds Allergies and Home Medications Allergies Allergy/AdvReac Type Severity Reaction Status Date / Time atorvastatin calcium Allergy Severe Other (See Verified 09/05/23 07:17 [From Lipitor] Comment) Home Medication Medication Instructions Recorded sertraline 100 mg tablet 100 mg PO DAILY 05/04/15 ibuprofen 200 mg tablet 200 mg PO PRN PRN 05/05/15 aspirin 81 mg chewable tablet 81 mg PO DAILY 08/25/16 fluticasone propionate 50 1 spray intranasal BID 11/02/20 mcg/actuation nasal spray,suspension (Flonase Allergy Relief) lisinopril 20 mg tablet 40 mg PO DAILY 11/02/20 aspirin-sod bicarb-citric acid 325 1 tab PO DAILY PRN 06/24/21 mg-1,916 mg-1,000 mg efferves tab (Christel-[place] Original) omeprazole 20 mg capsule,delayed 20 mg PO DAILY 06/24/21 release simvastatin 40 mg tablet 20 mg PO QAM 01/17/23 Curcumin PO 07/05/23 albuterol sulfate 90 mcg/actuation 2 puff inhalation Q6H PRN 08/01/23 aerosol inhaler azelastine 137 mcg (0.1 %) nasal 1 spray intranasal BID 08/01/23 spray aerosol fexofenadine 180 mg tablet 180 mg PO DAILY 08/01/23 (Linda Allergy) magnesium chloride 71.5 mg 71.5 mg PO DAILY 08/01/23 (magnesium chloride) tablet,delayed release (Slow-Mag) bisacodyl 5 mg tablet,delayed 5 mg PO ONCE #4 tabs 08/16/23 release (Dulcolax (bisacodyl)) polyethylene glycol 3350 17 17 g PO DAILY #238 grams 08/16/23 gram/dose oral powder Current Visit Medications: Current Medications Generic Name Dose Route Start Last Admin Trade Name Freq PRN Reason Stop Dose Admin Ringer's Solution 1,000 mls @ 80 mls/hr 09/05/23 06:00 09/05/23 07:31 IV 09/05/23 23:59 80 mls/hr INFUSION RJ Administration IV Miscellaneous Supplies 1 each 09/05/23 06:00 Iv Access IV 09/05/23 23:59 DIRECTED RJ Sodium Chloride 0 ml 09/05/23 06:00 Normal Saline Flush 10 Ml Syr IV 09/05/23 23:59 PRN PRN Sodium Chloride 0 ml 09/05/23 06:00 Normal Saline 10 Ml Vial IJ 09/05/23 23:59 DIRECTED PRN Sterile Water 0 ml 09/05/23 06:00 Water,Injection,Sterile 10 Ml Vial IJ 09/05/23 23:59 DIRECTED PRN PFSH Active Problems Active Problems: Problem Status Onset Code Mild cognitive impairment G31.84 Medical History Medical History Organic periodic limb movement disorder Peripheral neuropathy Lower urinary tract symptoms Shoulder pain, bilateral Hyperthyroidism Skin lesion Sinusitis Environmental allergies Abdominal pain Health examination of defined subpopulation History of environmental allergies Chronic sinusitis Family history of abdominal aortic aneurysm (AAA) Erectile dysfunction Psoriasis Hypertension Hyperlipidemia Periodic limb movement disorder GERD (gastroesophageal reflux disease) Fatigue Anxiety Overweight Fatty liver Thyroid nodule History of neck pain Obstructive sleep apnea Tubular adenoma of colon Bunion, left foot Family history of Alzheimer's disease Memory loss Surgical History Surgical History H/O hand surgery Finger fx repair w/ pins, left hand S/P correction of deviated nasal septum History of uvulopalatopharyngoplasty 2010 H/O colonoscopy H/O toe surgery H/O wisdom tooth extraction H/O inguinal hernia repair 1979 H/O shoulder surgery left shoulder, 1976 EGD - MAC (09/22/16) Tobacco Smoking/Tobacco Use Status: Never Alcohol Alcohol Intake: never Substance Use Substance use: Never Substance use type: does not use Vital Signs and Lab Results Vital Signs Most Recent Vital Signs in EMR: Most Recent Vital Signs Temp Pulse Resp BP Pulse Ox 36.5 C 54 L 16 148/94 H 97 09/05/23 07:18 09/05/23 07:18 09/05/23 07:18 09/05/23 07:18 09/05/23 07:18 Lab Results Blood Type / Crossmatch: No Data to Display Complete Blood Count: No Data to Display Complete Metabolic Panel: No Data to Display Liver Function Panel: No Data to Display Coagulation Panel: No Data to Display Cardiac Panel: No Data to Display Arterial Blood Gas: No Data to Display Venous Blood Gas: No Data to Display Pancreas Panel: No Data to Display Thyroid Panel: No Data to Display Infectious Disease: No Data to Display Blood Cultures: No Data to Display Toxicology Panel: No Data to Display Imaging and Studies Imaging and Studies Study information below may be from another EMR and interpreted by another provider. Please see original notes in EMR for more complete details. Pulmonary Function Summary: Date of service: 07/31/23 Time of Service: 08:07 Pulmonary Function Test Result Indications: Dyspnea Interpretation Spirometry: There is no airflow limitation. No bronchodilator response. Lung Volumes: Normal lung volumes Diffusion Capacity: Normal diffusion Airway Pressure: Normal airways resistance Impression Normal pulmonary function testing Clinical Correlation therefore is recommended. Anesthesia Assessment and Plan Anesthesia History Personal History: No History of Anesthesia Complications Family History: No Family History of Anesthesia Complications Exercise Tolerance Exercise Tolerance: Metabolic Equivalents>4 Pertinent Negatives Pertinent Negatives: No Symptoms of GERD, No Major Cardiovascular Symptoms or Complaints and No Major Pulmonary Symptoms or Complaints Cardiac & Pulmonary Exam Cardiac Exam: Normal S1/S2 Heart Sounds Pulmonary Exam: Clear Bilateral Breath Sounds Implantable Cardiac Device Does patient have a Pacemaker or an ICD?: No Airway Exam Known Difficult Airway: No Mallampati Class: 2 Mouth Opening: Normal (> 3cm) Thyromental Distance: Less than 3 cm Facial Hair: Full Menendez Neck Range of Motion: Full ROM Neck Circumference: Normal Teeth Condition: Normal Dentition ASA Classification ASA Score: ASA 2 Emergency Case?: No NPO Status NPO Status: NPO Clears >2 hours, Solids >8 hours Anesthesia Plan Resuscitation Status: Full Code Anesthesia Technique: General Anesthesia Airway Planned: Natural Airway Monitors Used: Standard Monitors
[2023-09-05 08:04] VITALS: BMI 29.3
--- NOTE | 2023-09-05 08:24 | W.COLOREPORT ---
Date of service: 09/05/23 Time of Service: 08:25 Colonoscopy Report Procedure Description: PROCEDURES PERFORMED: 1. Colonoscopy with cold forceps polypectomy PREOPERATIVE DIAGNOSIS: Surveillance colonoscopy POSTOPERATIVE DIAGNOSIS: Colon polyps, grade 1 internal hemorrhoids SURGEON: Marin Valero MD INDICATION for procedure: The patient is a 62-year-old man with no family history of colon cancer and no symptoms. He has had prior colonoscopies and thinks the last one was normal but maybe had polyps a couple colonoscopies ago. He is not sure. FINDINGS: Terminal ileum normal. In the descending colon a 3-5 mm sessile polyp was removed in a couple of pieces with cold forceps technique. In the rectum a small 2 to 3 mm sessile polyp was removed with cold forceps technique. No obvious diverticular disease was encountered. Some mild internal hemorrhoids are noted. SURVEILLANCE interval/FOLLOW-UP: 3 - 10 years. If sessile serrate or villous histology(not suspected), then in 3 years. Otherwise, 7-10 year followup is acceptable, SPECIMENS: yes EBL: Minimal COMPLICATIONS: None QUALITY of PREP: Excellent Procedure in detail: The patient gave written consent and was in agreement with the indications, the potential risks as well as the benefits of the procedure. They were taken to the endoscopy suite and laid in the left lateral decubitus position. A timeout was performed and anesthesia was administered which was tolerated well. I started the procedure. Digital rectal and visual examination was performed and grossly within normal limits. A well-lubricated flexible colonoscope was then introduced and passed without any notable difficulty all the way to the cecum identified by the ileocecal valve and the appendiceal orifice. The terminal ileum was normal. The scope was then slowly withdrawn with the above-noted findings. The patient tolerated the procedure well and was taken to the PACU in hemodynamically stable condition.
--- NOTE | 2023-09-05 08:25 | W.PM.DSUDISC ---
Date of service: 09/05/23 Time of Service: 08:25 Discharge Plan Disposition Patient Disposition: Home Condition: Good Discharge Details Attending Provider: Jaden Valero Primary Care Provider: Trudi Irby Home Meds and New Rx's Prescriptions: No Action Curcumin PO azelastine 137 mcg (0.1 %) aerosol,spray 1 spray intranasal BID Rx Instructions: administer into each nostril albuterol sulfate 90 mcg/actuation HFA aerosol inhaler 2 puff inhalation Q6H PRN Slow-Mag 71.5 mg tablet,delayed release (DR/EC) 71.5 mg PO DAILY fexofenadine [Linda Allergy] 180 mg tablet 180 mg PO DAILY bisacodyl [Dulcolax (bisacodyl)] 5 mg tablet,delayed release (DR/EC) 5 mg PO ONCE Qty: 4 0RF polyethylene glycol 3350 17 gram/dose powder 17 g PO DAILY Qty: 238 0RF aspirin 81 MG tablet,chewable 81 mg PO DAILY fluticasone propionate [Flonase Allergy Relief] 50 mcg/actuation spray,suspension 1 spray intranasal BID Rx Instructions: administer into each nostril lisinopril 20 mg tablet 40 mg PO DAILY omeprazole 20 mg capsule,delayed release(DR/EC) 20 mg PO DAILY Christel-[place] Original 325-1,916-1,000 mg tablet, effervescent 1 tab PO DAILY PRN simvastatin 40 mg tablet 20 mg PO QAM sertraline 100 MG tablet 100 mg PO DAILY ibuprofen 200 MG tablet 200 mg PO PRN PRN Discharge Instructions Additional Instructions: FINDINGS: A couple of small polyps were found and removed today. They are nothing to worry about. They get sent to pathology to get reviewed. Some mild hemorrhoid disease was seen today. This is very common, benign and nothing needs to be done about it. Should probably repeat another colonoscopy in 7-10 years. Stand Alone Forms: Anesthesia Discharge Inst., Colonoscopy Post Instructions, Moira Jonas (DSU) Activity:: Activity as Tolerated Diet:: As Tolerated Discharge Orders Discharge Orders: Discharge Order (Routine); Ordered 09/05/23 Ordered By: Jaden Valero
--- NOTE | 2023-09-05 09:10 | BOWEL_PTH ---
PATIENT: Moisés Lantigua LOC: [facility] U#:[id number] AGE/SX: 62/M ROOM: RE09/05/[address]: Jaden Valero : 1960 BED: DIS: 09/05/2023 SPEC #: [id number] RECD: 09/05/23 12:53 STATUS: LINO REQ #: [id number] CANDI: 09/05/23 09:[address]: Jaden Valero DEPT: Surgical Specimen RECD BY: Dixie Rosado ENTERED: 09/05/23 12:54 SP TYPE: Bowel OTHR DR: Trudi Irby Tissues: 1 - BIOPSY BOWEL 2 - BIOPSY BOWEL Procedures: GROSS AND MICRO LEVEL 4 Comments: [id number]
[2023-09-05 09:26] VITALS: BP 131/96; PULSE 55; RESP 16; TEMP 36.6; O2SAT 96
[2023-09-05 09:50] VITALS: BP 151/95; PULSE 49; RESP 16; TEMP 36.3; O2SAT 98
--- NOTE | 2023-09-05 10:50 | W.ANESPOSTOP ---
Postoperative Evaluation Date, Time and Location Date Performed: 09/05/23 Time Performed: 09:44 Patient Location: Day Surgery Unit Vital Signs Most Recent Imported Vital Signs: Most Recent Vital Signs Temp Pulse Resp BP Pulse Ox 36.3 C L 49 L 16 151/95 H 98 09/05/23 09:50 09/05/23 09:50 09/05/23 09:50 09/05/23 09:50 09/05/23 09:50 Pain Score Most Recent Pain Score: Most Recent Pain Score Pain Level 0 09/05/23 09:26 Assessment Mental Status: Awake (Alert & Oriented to Patient Baseline) Airway and Respiratory Function: Patent airway with normal (patient baseline) respiratory exam Cardiovascular Function: Hemodynamically Stable Hydration Status: Adequately Hydrated Nausea & Vomiting: No Nausea or Vomiting Pain: Pt. Denies Any Pain Peripheral Nerve Block: Patient did not receive a nerve block
== END 2023-09-05 10:20 | disposition home or self-care (01) ==
PROVIDERS: PCP Nurse Practitioner Family; Visit Provider Student in an Organized Health Care Education/Training Program
PROC: 0DJD8ZZ Inspection of Lower Intestinal Tract, Via Natural or Artificial Opening Endoscopic (ICD-10-PCS; CPT 45378; principal; 2023-09-05 08:30)
DX: Z12.11 Encounter for screening for malignant neoplasm of colon (principal); D12.4 Benign neoplasm of descending colon; K64.0 First degree hemorrhoids; K62.1 Rectal polyp
CPT/HCPCS: 45380; 00123; 88305; J2704

== ENCOUNTER 2023-09-26 10:44 | Outpatient (REF) | payer MEDICAID, SELFPAY ==
[2023-09-26 17:00] LABS: Calculated LDL 64 mg/dL (<100); Cholesterol 124 mg/dL (<200); HDL Cholesterol 36 mg/dL (40-60); Triglyceride 122 mg/dL (<150)
== END 2023-09-26 10:45 | disposition home or self-care (01) ==
LOC: NCHCN 10:44
PROVIDERS: PCP Nurse Practitioner Family; Visit Provider Nurse Practitioner Family
DX: E78.5 Hyperlipidemia, unspecified (principal)
CPT/HCPCS: 80061

== ENCOUNTER 2023-11-20 15:44 | Outpatient (CLI) | payer MEDICARE, SELFPAY ==
--- NOTE | 2023-11-20 13:00 | DI.RAD_ITS ---
Exam(s) XR SHOULDER LT COMPLETE 2+V EXAM: XR SHOULDER LT COMPLETE 2+V CLINICAL HISTORY: BILATERAL SHOULDER PAIN. TECHNIQUE: 2D digital imaging was performed. Two views. COMPARISON: No exams were available for comparison FINDINGS: BONES: No acute fracture is present. No bony destructive lesion is seen. Mild spurring at greater tu berosity. Prominent spurring undersurface of acromion. JOINTS: No dislocation present. Glenohumeral joint space is maintained. There is spurring at the gl enoid mild spurring at the adjacent humeral head. Degenerative changes at AC joint. SOFT TISSUE: Normal. IMPRESSION: Degenerative changes, greatest at the undersurface of the acromion. DATA REPOSITORY: RADIATION DOSE DELIVERED:
--- NOTE | 2023-11-20 13:00 | DI.RAD_ITS ---
Exam(s) XR SHOULDER RT COMPLETE 2+V EXAM: XR SHOULDER RT COMPLETE 2+V CLINICAL HISTORY: BILATERAL SHOULDER PAIN. TECHNIQUE: 2D digital imaging was performed. Two views. COMPARISON: CR LEFT SHOULDER COMPLETE from 04/12/2012 FINDINGS: BONES: No acute fracture is present. No bony destructive lesion is seen. JOINTS: No dislocation present. Glenohumeral joint space is maintained. Mild spurring at the glenoi d. Spurring at the undersurface of acromion and AC joint. Mild spurring at greater tuberosity. SOFT TISSUE: Normal. IMPRESSION: Degenerative changes, greatest at the AC joint and undersurface of acromion. DATA REPOSITORY: RADIATION DOSE DELIVERED:
== END 2023-11-20 15:45 | disposition home or self-care (01) ==
LOC: DIORS 15:44
PROVIDERS: PCP Nurse Practitioner Family; Visit Provider Student in an Organized Health Care Education/Training Program
DX: M25.511 Pain in right shoulder (principal); M25.512 Pain in left shoulder; M19.012 Primary osteoarthritis, left shoulder; M19.011 Primary osteoarthritis, right shoulder
CPT/HCPCS: 73030

== ENCOUNTER → 2024-03-04 08:23 | Outpatient (BNVA) | payer MEDICARE, SELFPAY | PROVIDERS: PCP Nurse Practitioner Family; Referring Provider Nurse Practitioner Family; Visit Provider Student in an Organized Health Care Education/Training Program | DX: M75.101 Unspecified rotator cuff tear or rupture of right shoulder, not specified as traumatic (principal); M19.011 Primary osteoarthritis, right shoulder; M19.012 Primary osteoarthritis, left shoulder | CPT/HCPCS: 99213 ==

== ENCOUNTER 2024-03-26 01:22 | Outpatient (CLI) | payer MEDICARE, SELFPAY ==
--- NOTE | 2024-03-26 06:30 | DI.MRI_ITS ---
Exam(s) MR UPPER JOINT RT WO EXAM: MR UPPER JOINT RT WO CLINICAL HISTORY: rt shoulder pain,? rotator cuff tear,M25.511 TECHNIQUE: Multiplanar multisequence MRI of the shoulder was performed. COMPARISON: CR XR SHOULDER RT COMPLETE 2+V from 11/20/2023 FINDINGS: MARROW:There is no evidence of fracture, Hill-Sachs deformity, nor ominous osseous lesions. There is small degenerative subarticular cysts evident in the posterior aspect of the greater tuberosity on th e lateral aspect of the humeral head. GLENOHUMERAL JOINT: There are only minimal degenerative changes in the glenohumeral joint. There are no degenerative subarticular cysts in the osseous glenoid. No osteophytes. There are no loose intr a-articular bodies ROTATOR CUFF MECHANISM: AC JOINT/ACROMIUM: There is significant osteoarthritic degenerative changes in the AC joint with sign ificant impingement at this level mostly from downgoing osteophytes which are most prominent on the c lavicular side.. There is no evidence of os acromiale. Supraspinatus: There is a full-thickness tear of the supraspinatus tendon with continuity of fluid be tween the glenohumeral joint and subacromial bursa space.. The AP width of the tear is approximately 2.2 cm. There is some retraction of the musculotendinous junction to the mid humeral head level. N o prominent muscle atrophy. Infraspinatus: There is tendinitis-tendinosis signal. Also partial thickness tearing evident. No mu scle atrophy. Teres Minor: Intact. No evidence of tear nor muscle atrophy. Subscapularis/anterior cuff: There is mild tendinitis signal in the insertional aspect anterior to th e lesser tuberosity. No full-thickness tear. No atrophy. BICEPS TENDON: Exhibits normal position within the intertubercular groove. Some signal abnormality i s noted within the intra-articular aspect of the biceps tendon but without high-grade tear. LABRUM: There is some thinning of the most posterior aspect of the superior labrum. Also some irregu larity noted within the posterior labrum.. Some irregularity of the superior aspect of the anterior labrum is noted and there is some fluid cystic change at this level which is probably a paralabral cy st but is difficult to differentiate from the small glenohumeral joint effusion and abundant fluid in the subacromial bursa. The inferior labrum appears intact with no evidence of avulsion of the anter ior-inferior labrum/inferior glenohumeral ligament complex, nor disruption of the scapular periosteum to suggest the presence of a Bankart lesion. IMPRESSION: 1. There is a prominent full-thickness tear of the supraspinatus-rotator cuff tendon. No prominent a trophy. The AP bare area measurement of the tear is 2.2 cm 2. There is partial-thickness tearing of the infraspinatus. 3. Some increased signal seen within the intra-articular aspect of the biceps tendon but without full -thickness tear. 4. Some thinning of the posterior superior labrum and posterior labrum noted but without true fluid interposition. There is also some irregularity evident in the anterior superior labrum evident on th e axial images but not substantiated in the other planes. There is some mild increased signal within the intra-articular aspect of the biceps tendon but without high-grade tear nor displacement of this structure. DATA REPOSITORY:
== END 2024-03-26 01:42 ==
LOC: DI 01:22
PROVIDERS: PCP Nurse Practitioner Family; Visit Provider Student in an Organized Health Care Education/Training Program
DX: M75.121 Complete rotator cuff tear or rupture of right shoulder, not specified as traumatic
CPT/HCPCS: 73221

== ENCOUNTER → 2024-04-02 08:11 | Outpatient (BNVA) | payer MEDICARE, SELFPAY | PROVIDERS: PCP Nurse Practitioner Family; Referring Provider Nurse Practitioner Family; Visit Provider Student in an Organized Health Care Education/Training Program | DX: M75.101 Unspecified rotator cuff tear or rupture of right shoulder, not specified as traumatic (principal); M19.011 Primary osteoarthritis, right shoulder; M19.012 Primary osteoarthritis, left shoulder | CPT/HCPCS: 20610; J1010 ==

== ENCOUNTER → 2024-07-02 12:50 | Outpatient (BNVA) | payer MEDICARE, SELFPAY | PROVIDERS: PCP Nurse Practitioner Family; Referring Provider Nurse Practitioner Family; Visit Provider Student in an Organized Health Care Education/Training Program | DX: M19.011 Primary osteoarthritis, right shoulder (principal); M19.012 Primary osteoarthritis, left shoulder; M75.101 Unspecified rotator cuff tear or rupture of right shoulder, not specified as traumatic | CPT/HCPCS: 99213 ==

== ENCOUNTER 2024-07-03 01:02 | Outpatient (CLI) | payer MEDICARE, SELFPAY ==
--- NOTE | 2024-07-03 | DI.US_ITS ---
Exam(s) US ABDOMEN LIMITED EXAM: US ABDOMEN LIMITED CLINICAL HISTORY: STEATOSIS OF LIVER, K76.0, FATTY LIVER, TECHNIQUE: Ultrasound abdomen performed using standard protocol. COMPARISON: US US ABDOMEN LIMITED from 07/23/2023 FINDINGS: LIVER: 18.2 cm in length. Normalechogenicity. No focal liver lesions are seen.. GALLBLADDER: No evidence of cholelithiasis. No evidence of wall thickening. No pericholecystic fluid identified. HAMEED'S SIGN: Negative. BILIARY SYSTEM: No intrahepatic or extrahepatic biliary ductal dilation. RIGHT KIDNEY: Normal size. No evidence of renal calculi. No evidence of hydronephrosis. No suspicious renal mass. No cyst identified. PANCREAS: Normal where visualized. ABDOMINAL AORTA AND IVC: Visualized portions normal caliber. ASCITES: None seen. IMPRESSION: Normal sonographic appearance of the right upper quadrant. Improvement in hepatic steatosis. DATA REPOSITORY:
--- NOTE | 2024-07-03 | DI.US_ITS ---
Exam(s) US AAA SCREENING EXAM: US AAA SCREENING CLINICAL HISTORY: FAMILY HX CARDIOVASCULAR DISEASE/ISCHEMIC HEART DISEASE, Z82.49 COMPARISON: No exams were available for comparison FINDINGS: Abdominal Aorta: Proximal: 2.6 cm Mid: 2.5 cm Distal: 2.0 cm Iliacs: Right: 1.3 cm Left: 1.4 cm IMPRESSION: No evidence of abdominal aortic aneurysm. DATA REPOSITORY:
== END 2024-07-03 01:22 ==
LOC: DI 01:02
PROVIDERS: PCP Nurse Practitioner Family; Visit Provider Nurse Practitioner Family
DX: K76.0 Fatty (change of) liver, not elsewhere classified (principal); Z82.49 Family history of ischemic heart disease and other diseases of the circulatory system; Z13.6 Encounter for screening for cardiovascular disorders
CPT/HCPCS: 76706; 76705

== ENCOUNTER 2024-07-07 01:51 | Outpatient (CLI) | payer MEDICARE, SELFPAY ==
--- NOTE | 2024-07-07 06:45 | DI.CT_ITS ---
Exam(s) CT UPPER EXTREMITY RT WO EXAM: CT UPPER EXTREMITY RT WO CLINICAL HISTORY: SURGICAL PLANNING,oa rt glenohumeral joint,m19.011 TECHNIQUE: Imaging Protocol: Axial computed tomography images with coronal and sagittal reformatted images were created and reviewed. CONTRAST MATERIAL: Intravenous: None COMPARISON: CR XR SHOULDER RT COMPLETE 2+V from 11/20/2023 CR XR SHOULDER LT COMPLETE 2+V from 11/20/2023 FINDINGS: OSSEOUS/ARTICULATIONS There is no evidence of fracture or dislocation of glenohumeral joint. No abnormal soft tissue calci fications. There is a degenerative subarticular cyst in the lateral aspect of the humeral head. The subacromial space does not appear diminished. However, there is significant degenerative changes in the acromioclavicular joint with joint space narrowing and downgoing small osteophytes. There is al so a small osteophytic ridge on the undersurface of the acromium. IMPRESSION: Mild degenerative changes in the glenohumeral joint. Moderate significant degenerative changes in the acromioclavicular joint. RADIATION DOSE DELIVERED: 246.53mGy.cm Total DLP DATA REPOSITORY: All CT scans at this facility are submitted to the National Radiology Data Registry (NRDR) Dose Index Registry (DIR) with the [employer] (A[employer]). RADIATION OPTIMIZATION: All CT scans at this facility use at least one of these dose optimization te chniques: automated exposure control; mA and/or kV adjustment per patient size (includes targeted exa ms where dose is matched to clinical indication); or iterative reconstruction.
== END 2024-07-07 02:11 ==
LOC: DI 01:51
PROVIDERS: PCP Nurse Practitioner Family; Visit Provider Student in an Organized Health Care Education/Training Program
DX: M19.011 Primary osteoarthritis, right shoulder (principal)
CPT/HCPCS: 73200

== ENCOUNTER 2024-07-16 10:04 | Outpatient (REF) | payer MEDICARE, SELFPAY ==
[2024-07-16 16:01] LABS: Abs Immature Grans 0.02 10^3/uL (0.0-0.06); Absolute Basophil Count 0.05 10^3/uL (0.0-0.2); Absolute Eosinophil Count 0.41 10^3/uL (0.0-0.7); Absolute Lymphocyte Count 1.06 10^3/uL (1.2-3.4); Absolute Monocyte Count 0.69 10^3/uL (0.1-0.8); Absolute Neutrophil Count 3.38 10^3/uL (1.2-6.7); Basophils % 0.9 %; Eosinophils % 7.3 %; HCT 47.9 % (40.0-50.0); HGB 15.7 g/dL (13.5-17.5); Immature Grans % 0.4 %; Lymphocytes % 18.9 %; MCH 30.3 pg (27.0-33.0); MCHC 32.8 % (32.0-36.0); MCV 92 fL (80-95); MPV 9.6 fL (8.0-11.0); Monocytes % 12.3 %; Neutrophils % 60.2 %; Platelet Count 248 10^3/uL (130-400); RBC 5.19 10^6/uL (4.36-5.78); RDW 12.2 % (11.8-14.1); RDW-SD 41.7 fL; WBC 5.61 10^3/uL (4.4-10.8)
[2024-07-16 16:44] LABS: ALT 42 U/L (16-63); AST 17 U/L (15-37); Albumin 4.3 g/dL (3.4-5.0); Alkaline Phosphatase 75 U/L (46-116); Anion Gap 8.5 mmol/L (3-11); BUN 19 mg/dL (7-18); Bilirubin, Total 0.7 mg/dL (0.2-1.0); CO2 28.5 mmol/L (21.0-32.0); CREATININE 0.9 mg/dL (0.70-1.30); Calcium 9.5 mg/dL (8.5-10.1); Calculated LDL 99 mg/dL (<100); Chloride 108 mmol/L (98-107); Cholesterol 174 mg/dL (<200); Estimated GFR 94.78 (mL/min/1.73m2); Glucose 99 mg/dL (74-106); HDL Cholesterol 45 mg/dL (>or=40); Magnesium 2.3 mg/dL; Potassium 5.2 mmol/L (3.5-5.1); Sodium 145 mmol/L (136-145); TSH (W/Ref FT4) 0.45 uIU/mL (0.36-3.74); Triglyceride 151 mg/dL (<150); Vitamin B12 606 pg/mL (193-986)
[2024-07-16 19:41] LABS: Hemoglobin A1C 5.6 % (<5.7)
== END 2024-07-16 10:05 | disposition home or self-care (01) ==
LOC: NCHCN 10:04
PROVIDERS: PCP Nurse Practitioner Family; Visit Provider Nurse Practitioner Family
DX: E05.90 Thyrotoxicosis, unspecified without thyrotoxic crisis or storm (principal); R73.03 Prediabetes
CPT/HCPCS: 80053; 80061; 82607; 83036; 83735; 84154; 84443; 85025

== ENCOUNTER → 2024-07-30 09:25 | Outpatient (BNVA) | payer MEDICARE, SELFPAY | PROVIDERS: PCP Nurse Practitioner Family; Referring Provider Nurse Practitioner Family; Visit Provider Student in an Organized Health Care Education/Training Program | DX: M75.101 Unspecified rotator cuff tear or rupture of right shoulder, not specified as traumatic (principal); M19.011 Primary osteoarthritis, right shoulder; M19.012 Primary osteoarthritis, left shoulder | CPT/HCPCS: 99214 ==

== ENCOUNTER 2024-08-22 05:56 | Day surgery (SDC) | payer MEDICARE, SELFPAY ==
[2024-08-22] VITALS (26 sets, daily range): BP systolic 110–220; BP diastolic 59–192; PULSE 58–109; RESP 16–27; TEMP 36.4–36.7; O2SAT 92–98; BMI 28.5
[2024-08-22] MEDS: Lactated Ringers 1,000 ML 30 ML IV (06:55)
--- NOTE | 2024-08-22 07:01 | ANES.PREOP_ITS ---
General Info Date of Service Date Performed: 08/22/24 Height: 6 ft 1 in Weight: 98.1 kg Body Mass Index (BMI): 28.5 Surgical Procedure: Operation Date: 08/22/24 07:40 Proposed Procedure Side Surgeon p Shoulder Reverse Total Arthroplasty, Biceps Tenodesis Right Justin Mckoy MD Meds Allergies and Home Medications Allergies Allergy/AdvReac Type Severity Reaction Status Date / Time atorvastatin calcium (From Allergy Severe Other (See Verified 08/22/24 06:19 Lipitor) Comment) Home Medication ?Medication ?Instructions ?Recorded sertraline 100 mg tablet 100 mg PO DAILY 05/04/15 aspirin 81 mg chewable tablet 81 mg PO DAILY 08/25/16 fluticasone propionate 50 1 spray intranasal BID 11/02/20 mcg/actuation nasal spray,suspension (Flonase Allergy Relief) lisinopril 20 mg tablet 40 mg PO DAILY 11/02/20 aspirin-sod bicarb-citric acid 325 1 tab PO DAILY PRN 06/24/21 mg-1,916 mg-1,000 mg efferves tab (Christel-[place] Original) omeprazole 20 mg capsule,delayed 20 mg PO DAILY 06/24/21 release simvastatin 40 mg tablet 40 mg PO QAM 01/17/23 Curcumin PO 07/05/23 fexofenadine 180 mg tablet 180 mg PO DAILY 08/01/23 (Linda Allergy) magnesium chloride 71.5 mg 71.5 mg PO DAILY 08/01/23 (magnesium chloride) tablet,delayed release (Slow-Mag) gabapentin 300 mg capsule 300 mg PO HS 08/22/24 naproxen 250 mg tablet 250 - 500 mg (1 - 2 x 250 mg) PO 08/22/24 BID PRN moderate pain and swelling #40 tabs oxycodone 5 mg tablet 5 - 10 mg (1 - 2 x 5 mg) PO .q4-6h 08/22/24 PRN severe pain #18 tabs Current Visit Medications: Current Medications Generic Name Dose Route Start Last Admin Trade Name Freq PRN Reason Stop Dose Admin Ringer's Solution 1,000 mls @ 30 mls/hr 08/22/24 06:00 08/22/24 06:55 IV 08/22/24 23:59 30 mls/hr INFUSION RJ Administration Cefazolin Sodium/Dextrose 2 gm in 50 mls @ 100 mls/hr 08/22/24 06:00 Ancef Duplex IVPB 08/22/24 23:59 PREOP RJ Tranexamic Acid/Sodium Chloride 1,000 mg in 100 mls @ 600 mls/hr 08/22/24 06:00 IVPB 08/22/24 23:59 PREOP RJ IV Miscellaneous Supplies 1 each 08/22/24 06:00 Iv Access IV 08/22/24 23:59 DIRECTED RJ Sodium Chloride 0 ml 08/22/24 06:00 Normal Saline Flush 10 Ml Syr IV 08/22/24 23:59 PRN PRN Sodium Chloride 0 ml 08/22/24 06:00 Normal Saline 10 Ml Vial IJ 08/22/24 23:59 DIRECTED PRN Sterile Water 0 ml 08/22/24 06:00 Water,Injection,Sterile 10 Ml Vial IJ 08/22/24 23:59 DIRECTED PRN PFSH Active Problems Active Problems: Problem Status Onset Code Right rotator cuff tear Acute M75.101 Osteoarthritis of right glenohumeral joint Acute M19.011 Osteoarthritis of left glenohumeral joint Acute M19.012 Mild cognitive impairment Acute G31.84 Medical History Medical History Hyperplastic colon polyp (~08/2023) Organic periodic limb movement disorder Peripheral neuropathy Lower urinary tract symptoms Shoulder pain, bilateral Hyperthyroidism Skin lesion Sinusitis Environmental allergies Abdominal pain Health examination of defined subpopulation History of environmental allergies Chronic sinusitis Family history of abdominal aortic aneurysm (AAA) Erectile dysfunction Psoriasis Hypertension Hyperlipidemia Periodic limb movement disorder GERD (gastroesophageal reflux disease) Fatigue Anxiety Overweight Fatty liver Thyroid nodule History of neck pain Obstructive sleep apnea Tubular adenoma of colon Bunion, left foot Family history of Alzheimer's disease Memory loss Surgical History Surgical History H/O hand surgery Finger fx repair w/ pins, left hand S/P correction of deviated nasal septum History of uvulopalatopharyngoplasty 2010 H/O colonoscopy (~08/2023) H/O toe surgery H/O wisdom tooth extraction H/O inguinal hernia repair 1979 H/O shoulder surgery left shoulder, 1976 EGD - MAC (09/22/16) Tobacco Smoking/Tobacco Use Status: Never Passive smoking exposure: No Alcohol Alcohol Intake: never Substance Use Substance use: Never Substance use type: does not use Vital Signs and Lab Results Vital Signs Most Recent Vital Signs in EMR: Most Recent Vital Signs Temp Pulse Resp BP Pulse Ox 36.6 C 58 L 16 164/91 H 98 08/22/24 06:10 08/22/24 06:10 08/22/24 06:10 08/22/24 06:10 08/22/24 06:10 Lab Results Blood Type / Crossmatch: No Data to Display Complete Blood Count: No Data to Display Complete Metabolic Panel: No Data to Display Liver Function Panel: No Data to Display Coagulation Panel: No Data to Display Cardiac Panel: No Data to Display Arterial Blood Gas: No Data to Display Venous Blood Gas: No Data to Display Pancreas Panel: No Data to Display Thyroid Panel: No Data to Display Infectious Disease: No Data to Display Blood Cultures: No Data to Display Toxicology Panel: No Data to Display Imaging and Studies Imaging and Studies Study information below may be from another EMR and interpreted by another provider. Please see original notes in EMR for more complete details. Pulmonary Function Summary: Date of service: 07/31/23 Time of Service: 08:07 Pulmonary Function Test Result Indications: Dyspnea Interpretation Spirometry: There is no airflow limitation. No bronchodilator response. Lung Volumes: Normal lung volumes Diffusion Capacity: Normal diffusion Airway Pressure: Normal airways resistance Impression Normal pulmonary function testing Clinical Correlation therefore is recommended. Anesthesia Assessment and Plan Anesthesia History Personal History: No History of Anesthesia Complications Family History: No Family History of Anesthesia Complications Exercise Tolerance Exercise Tolerance: Metabolic Equivalents>4 Implantable Cardiac Device Does patient have a Pacemaker or an ICD?: No Airway Exam Known Difficult Airway: No Mallampati Class: 2 Mouth Opening: Normal (> 3cm) Thyromental Distance: Less than 3 cm Neck Range of Motion: Full ROM Neck Circumference: Normal Teeth Condition: Normal Dentition
--- NOTE | 2024-08-22 07:07 | W.PM.DSUDISC ---
Date of service: 08/22/24 Discharge Plan Disposition Patient Disposition: Home Condition: Stable Discharge Details Attending Provider: Justin Mckoy Primary Care Provider: Trudi Irby Home Meds and New Rx's Prescriptions: New naproxen 250 mg tablet 250 - 500 mg PO BID PRN (Reason: moderate pain and swelling) Qty: 40 0RF oxycodone 5 mg tablet 5 - 10 mg PO .q4-6h MDD 30 mg PRN (Reason: severe pain) Qty: 18 0RF Continued Curcumin PO Slow-Mag 71.5 mg tablet,delayed release (DR/EC) 71.5 mg PO DAILY fexofenadine [Linda Allergy] 180 mg tablet 180 mg PO DAILY aspirin 81 MG tablet,chewable 81 mg PO DAILY fluticasone propionate [Flonase Allergy Relief] 50 mcg/actuation spray,suspension 1 spray intranasal BID Rx Instructions: administer into each nostril lisinopril 20 mg tablet 40 mg PO DAILY omeprazole 20 mg capsule,delayed release(DR/EC) 20 mg PO DAILY Christel-[place] Original 325-1,916-1,000 mg tablet, effervescent 1 tab PO DAILY PRN simvastatin 40 mg tablet 40 mg PO QAM sertraline 100 MG tablet 100 mg PO DAILY gabapentin 300 mg capsule 300 mg PO HS Discontinued ibuprofen 200 MG tablet 200 mg PO PRN PRN Discharge Instructions Additional Instructions: Surgery: Right reverse total shoulder arthroplasty (subscapularis repair) with biceps tenodesis 08/22/24 Activity: Do not lift anything heavier than a coffee. You should keep your arm at your side in a neutral position at all times except for gentle range of motion exercises, physical therapy, and essential activities. You should use the sling whenever you are out of the house. At home it is best to remove the sling and rest the arm on a pillow at your side or support the operative side with your other hand. A physical therapy prescription will be sent electronically to start in about 3 weeks. CONSERVATIVE/subscap repair protocol. Prescriptions: Resume home Aspirin 81 mg tomorrow Naproxen 250 mg take 1-2 daily with a meal as needed for moderate pain Oxycodone 5 mg take 1-2 every 4-6 hours as needed for severe pain You may use [id number] Tylenol (acetaminophen) as needed for mild pain. These pain medications may be taken all at once or in different combinations as needed. Also, recommend Colace (docusate) as a stool softener as surgery and pain medicine cause constipation. You may try [id number] diphenhydramine (Benadryl) 25-50 mg nightly as a sleep aid Dressings: Leave dressing in place until follow-up. Keep clean and dry at all times. No showers please. Follow-up: 10-[address] Mckoy You may take off the leg compression stockings this evening at home. You may also leave them on a few days longer if you have a history of leg swelling or edema. Please call the office during business hours with any questions or concerns. Let us know right away if you develop any redness, drainage, fevers, chest pain, or trouble breathing. Do not drink alcohol or drive for at least 24 hours after anesthesia. Discharge Orders Discharge Orders: Discharge Order (Routine); Ordered 08/22/24 Ordered By: Sandy Perez DS: Diagnosis Discharge Diagnosis (1) Right rotator cuff tear: Status: Acute (2) Tendonitis of long head of biceps brachii of right shoulder: Status: Acute
--- NOTE | 2024-08-22 07:26 | ANES.PREOP_ITS ---
General Info Date of Service Date Performed: 08/22/24 Height: 6 ft 1 in Weight: 98.1 kg Body Mass Index (BMI): 28.5 Surgical Procedure: Operation Date: 08/22/24 07:40 Proposed Procedure Side Surgeon p Shoulder Reverse Total Arthroplasty, Biceps Tenodesis Right Justin Mckoy MD Pre-Op Diagnosis Post-Op Diagnosis (1) Right rotator cuff tear: (2) Osteoarthritis of right glenohumeral joint: Meds Allergies and Home Medications Allergies Allergy/AdvReac Type Severity Reaction Status Date / Time atorvastatin calcium (From Allergy Severe Other (See Verified 08/22/24 06:19 Lipitor) Comment) Home Medication ?Medication ?Instructions ?Recorded sertraline 100 mg tablet 100 mg PO DAILY 05/04/15 aspirin 81 mg chewable tablet 81 mg PO DAILY 08/25/16 fluticasone propionate 50 1 spray intranasal BID 11/02/20 mcg/actuation nasal spray,suspension (Flonase Allergy Relief) lisinopril 20 mg tablet 40 mg PO DAILY 11/02/20 aspirin-sod bicarb-citric acid 325 1 tab PO DAILY PRN 06/24/21 mg-1,916 mg-1,000 mg efferves tab (Christel-[place] Original) omeprazole 20 mg capsule,delayed 20 mg PO DAILY 06/24/21 release simvastatin 40 mg tablet 40 mg PO QAM 01/17/23 Curcumin PO 07/05/23 fexofenadine 180 mg tablet 180 mg PO DAILY 08/01/23 (Linda Allergy) magnesium chloride 71.5 mg 71.5 mg PO DAILY 08/01/23 (magnesium chloride) tablet,delayed release (Slow-Mag) gabapentin 300 mg capsule 300 mg PO HS 08/22/24 naproxen 250 mg tablet 250 - 500 mg (1 - 2 x 250 mg) PO 08/22/24 BID PRN moderate pain and swelling #40 tabs oxycodone 5 mg tablet 5 - 10 mg (1 - 2 x 5 mg) PO .q4-6h 08/22/24 PRN severe pain #18 tabs Current Visit Medications: Current Medications Generic Name Dose Route Start Last Admin Trade Name Freq PRN Reason Stop Dose Admin Ringer's Solution 1,000 mls @ 30 mls/hr 08/22/24 06:00 08/22/24 06:55 IV 08/22/24 23:59 30 mls/hr INFUSION RJ Administration Cefazolin Sodium/Dextrose 2 gm in 50 mls @ 100 mls/hr 08/22/24 06:00 Ancef Duplex IVPB 08/22/24 23:59 PREOP RJ Tranexamic Acid/Sodium Chloride 1,000 mg in 100 mls @ 600 mls/hr 08/22/24 06:00 IVPB 08/22/24 23:59 PREOP RJ Cefazolin Sodium/Dextrose 1 gm in 50 mls @ 100 mls/hr 08/22/24 11:30 Ancef Duplex IVPB 08/22/24 11:59 NOW ONE IV Miscellaneous Supplies 1 each 08/22/24 06:00 Iv Access IV 08/22/24 23:59 DIRECTED RJ Lactobacillus Acidophilus/Casei 1 cap 08/22/24 12:30 L. Acidophilus, Casei, Rhamnosus Cap PO 08/22/24 12:31 DAILY ONE Oxycodone HCl 0 mg 08/22/24 07:06 Oxycodone 5 Mg Tab PO 09/21/24 07:05 Q3H PRN PRN Pain Sodium Chloride 0 ml 08/22/24 06:00 Normal Saline Flush 10 Ml Syr IV 08/22/24 23:59 PRN PRN Sodium Chloride 0 ml 08/22/24 06:00 Normal Saline 10 Ml Vial IJ 08/22/24 23:59 DIRECTED PRN Sterile Water 0 ml 08/22/24 06:00 Water,Injection,Sterile 10 Ml Vial IJ 08/22/24 23:59 DIRECTED PRN PFSH Active Problems Active Problems: Problem Status Onset Code Right rotator cuff tear Acute M75.101 Osteoarthritis of right glenohumeral joint Acute M19.011 Osteoarthritis of left glenohumeral joint Acute M19.012 Mild cognitive impairment Acute G31.84 Medical History Medical History Hyperplastic colon polyp (~08/2023) Organic periodic limb movement disorder Peripheral neuropathy Lower urinary tract symptoms Shoulder pain, bilateral Hyperthyroidism Skin lesion Sinusitis Environmental allergies Abdominal pain Health examination of defined subpopulation History of environmental allergies Chronic sinusitis Family history of abdominal aortic aneurysm (AAA) Erectile dysfunction Psoriasis Hypertension Hyperlipidemia Periodic limb movement disorder GERD (gastroesophageal reflux disease) Fatigue Anxiety Overweight Fatty liver Thyroid nodule History of neck pain Obstructive sleep apnea Tubular adenoma of colon Bunion, left foot Family history of Alzheimer's disease Memory loss Surgical History Surgical History H/O hand surgery Finger fx repair w/ pins, left hand S/P correction of deviated nasal septum History of uvulopalatopharyngoplasty 2010 H/O colonoscopy (~08/2023) H/O toe surgery H/O wisdom tooth extraction H/O inguinal hernia repair 1979 H/O shoulder surgery left shoulder, 1976 EGD - [facility] (09/22/16) Tobacco Smoking/Tobacco Use Status: Never Passive smoking exposure: No Second hand exposure: No Alcohol Alcohol Intake: never Substance Use Substance use: Never Substance use type: does not use Counseling provided: none Vital Signs and Lab Results Vital Signs Most Recent Vital Signs in EMR: Most Recent Vital Signs Temp Pulse Resp BP Pulse Ox 36.6 C 58 L 16 164/91 H 98 08/22/24 06:10 08/22/24 06:10 08/22/24 06:10 08/22/24 06:10 08/22/24 06:10 Lab Results Blood Type / Crossmatch: 2 No Data to Display Complete Blood Count: 2 No Data to Display Complete Metabolic Panel: 2 No Data to Display Liver Function Panel: 2 No Data to Display Coagulation Panel: 2 No Data to Display Cardiac Panel: 2 No Data to Display Arterial Blood Gas: 2 No Data to Display Venous Blood Gas: 2 No Data to Display Pancreas Panel: 2 No Data to Display Thyroid Panel: 2 No Data to Display Infectious Disease: 2 No Data to Display Blood Cultures: 2 No Data to Display Toxicology Panel: 2 No Data to Display Imaging and Studies Imaging and Studies Study information below may be from another EMR and interpreted by another provider. Please see original notes in EMR for more complete details. Pulmonary Function Summary: Date of service: 07/31/23 Time of Service: 08:07 Pulmonary Function Test Result Indications: Dyspnea Interpretation Spirometry: There is no airflow limitation. No bronchodilator response. Lung Volumes: Normal lung volumes Diffusion Capacity: Normal diffusion Airway Pressure: Normal airways resistance Impression Normal pulmonary function testing Clinical Correlation therefore is recommended. Anesthesia Assessment and Plan Anesthesia History Personal History: No History of Anesthesia Complications Family History: No Family History of Anesthesia Complications Exercise Tolerance Exercise Tolerance: Metabolic Equivalents>4 Pertinent Negatives Pertinent Negatives: No Major Cardiovascular Symptoms or Complaints, No Major Pulmonary Symptoms or Complaints and No History of CVA/TIA Cardiac & Pulmonary Exam Cardiac Exam: Normal S1/S2 Heart Sounds Pulmonary Exam: Clear Bilateral Breath Sounds and No cough or Cold Implantable Cardiac Device Does patient have a Pacemaker or an ICD?: No Airway Exam Known Difficult Airway: No Mallampati Class: 3 Mouth Opening: Normal (> 3cm) Thyromental Distance: Less than 3 cm Facial Hair: Full Menendez Neck Range of Motion: Full ROM Neck Circumference: Thick Teeth Condition: Normal Dentition Tooth Numberin 1. Missing ASA Classification ASA Score: ASA 2 Emergency Case?: No NPO Status NPO Status: NPO Clears >2 hours, Solids >8 hours Anesthesia Plan Resuscitation Status: Full Code Anesthesia Technique: General Anesthesia Airway Planned: Endotracheal Tube Pain Management: Surgeon and patient request nerve block Monitors Used: Standard Monitors and SedLine
[2024-08-22] MEDS: ceFAZolin 2 GM/50 ML BAG IVPB (07:37)
[2024-08-22] MEDS: TRANEXAMIC ACID/SOD. CHL. 1,000 MG/100 ML BAG 600 MG IVPB (07:50)
--- NOTE | 2024-08-22 08:22 | W.ANESNERVE ---
Nerve Block Single Injection Procedure Date and Time Date Performed: 08/22/24 Procedure Start: 07:17 Location Where Procedure Performed Procedure Location: Day Surgery Unit Reason Performed: Postoperative Analgesia Requesting Provider: Justin Mckoy Timeout Performed Timeout Performed: Yes Monitoring Used ECG, Blood Pressure and SpO2 Sterility Sterility: Hand Hygiene, Surgical Mask, Sterile Gloves, Eye Protection and Chlorhexidine Sedation Given During Procedure Sedation Given (Indicate Dose Given): Versed IV Dose:: 2 mg Patient Mental Status Patient Mental Status: Sedate with meaningful communication Nerve Block 1st Nerve Block: Laterality: Right Block Type: Interscalene Ultrasound Image Saved?: Yes Needle / Catheter Used: 80mm SonoPlex II Local Anesthetic Bolus (Indicate Dose Given): Lidocaine used for local infiltration of skin, Bupivacaine 0.25% Dose:: 6.5 ml and Exparel Dose:: 6.5 ml Additives (Indicate Dose Given): None Ultrasound: Sterile probe cover and gel used Nerve Stimulator: Supplement to Ultrasound use and No twitch or parasthesia noted < 0.5 mA Paresthesia: None Procedure Tolerated: No Complications and Patient tolerated well Procedure Outcome: Successful Performed By: Gaudencio Byrd Supervised By: Giuliana Millan 2nd Nerve Block: Laterality: Right Block Type: Superficial Cervical Plexus Ultrasound Image Saved?: Yes Needle / Catheter Used: 80mm SonoPlex II Local Anesthetic Bolus (Indicate Dose Given): Lidocaine used for local infiltration of skin, Bupivacaine 0.25% Dose:: 3.5 ml and Exparel Dose:: 3.5 ml Additives (Indicate Dose Given): None Ultrasound: Sterile probe cover and gel used Nerve Stimulator: Supplement to Ultrasound use and No twitch or parasthesia noted < 0.5 mA Paresthesia: None Procedure Tolerated: No Complications and Patient tolerated well Procedure Outcome: Successful Performed By: Gaudencio Byrd Supervised By: Giuliana Millan
[2024-08-22] MEDS: Vancomycin 1,000 MG VIAL 1000 MG (08:37)
[2024-08-22] MEDS: Bupivacaine 0.25% Pres-Free W/EPI 30 ML VIAL (08:37)
--- NOTE | 2024-08-22 11:09 | W.PM.OP ---
Operative Note Operative Note PRE-OP DIAGNOSIS: Right: 1. Irreparable rotator cuff tearing 2. Long head of the biceps tendinopathy POST-OP DIAGNOSIS: same PROCEDURE: Right: 1. Reverse total shoulder arthroplasty, CPT # 94081 2. Open biceps tenodesis, CPT # 03758 The assistant professor of chemistry was medically required as this procedure involves retraction, protection of neurovascular structures, and manipulation of multiple instruments and implants at the same time, which cannot be done without a skilled assistant professor of chemistry. SURGEON: Justin Mckoy FIELD LABORATORY OPERATOR: Sandy Perez ANESTHESIA TYPE: Local By Surgeon, General LMA/ETT and Primary Nerve Block Refer to Anesthesia Record ESTIMATED BLOOD LOSS: 150 COMPLICATIONS: None Patient was transported to: PACU Patient's condition: stable Implants: [employer] modular glenoid system baseplate 24 mm 10 degree full augment [employer] modular glenoid system central post 30 mm [employer] modular glenoid system peripheral locking screws 40 mm inferior, 36 mm superior, 20 mm posterior, 20 mm anterior [employer] modular glenoid system glenosphere 42 +4 mm lateralized [employer] humeral stem 135 degrees size 9 [employer] suture cup size 42 posterior offset [employer] humeral insert size 42 +3 mm Indications: Please see complete medical record for details. Findings: Significant long head biceps tenosynovitis, deficient supraspinatus irreparable, partial infraspinatus tendinopathy thinning and tearing, largely intact subscapularis. Early glenohumeral arthritis. Procedure Description: In the operating room, general anesthesia was induced. The patient was positioned beachchair on the operating room table. All bony prominences were well-padded. Preoperative antibiotics were administered. The shoulder was prepped and draped in the usual sterile fashion for shoulder arthroplasty. The correct patient, procedure, and side of the procedure were all verified prior to incision. The deltopectoral approach was preinjected with 0.25% bupivacaine containing epinephrine and taken to the anterior shoulder. Care was taken to bluntly dissect the interval between the deltoid and pectoralis major muscles and to identify the cephalic vein within its fat stripe. The the vein was mobilized laterally. Subdeltoid space and conjoined tendon were freed of adhesions. The long head of the biceps tendon was identified just lateral to the lesser tuberosity. The uppermost margin of the pectoralis major tendon was released from the proximal humerus. The long head of the biceps tendon was tenodesed in situ using SutureTape in a [id number] fashion securing it superior margin the pectoralis major tendon. The biceps tendon was amputated and followed proximally to identify the rotator interval. A subscapularis peel was performed taking care to release the entire tendon in a full-thickness fashion from superior to inferior and lateral to medial while bringing the arm gradually into external rotation. Care was taken to avoid the axillary nerve by only working on the bone inferiorly and medially. The subscapularis was tagged using SutureTape in a Arthur-Ministerio fashion and traction used confirm appropriate mobilization of the subscapularis tendon after gentle blunt dissection was used to free up the space anterior and posterior to it. The supraspinatus and infraspinatus were identified and infraspinatus leading edge minimally debrided of partial-thickness tearing for best preservation of tissue and postop function. Appropriate coagulation was achieved especially interiorly. The anatomic neck was cut using an oscillating saw with the humeral head bone brought back table in case there was a need for future bone grafting. The proximal humerus was delivered from the wound with adduction and external rotation. The proximal humeral protection plate was used to provisionally confirm suture cup and glenosphere size. Reamers were started appropriately posterior to the bicipital groove taking care to maintain in line approach with the humeral canal. Sequential reaming was done from size 5 up to size 9. Next, the broaches were sequentially used to open the proximal humerus starting with a size 5 and going up to size 9 and sunk to the appropriate depth while maintaining approximately 25 degrees retroversion. There was good metaphyseal fit and rotational control of the proximal humerus with this size. The posterior offset guide was used to ream for the suture cup. Attention was then turned to the glenoid and retractors were placed and a circumferential release performed using the long head of the biceps remnant to remove soft tissue about the glenoid rim. Care was taken inferiorly to work on bone only between 5 and 7:00 o'clock and bluntly elevate tissues inferiorly. The VIP guide was placed on the glenoid and used to confirm placement and trajectory of the central guidepin. The guidepin was inserted and advanced just through the far cortex ensuring adequate central fixation length. The glenoid was prepared according to injection molder specifications for a augmented baseplate and central post. The baseplate was impacted onto the glenoid surface. The locking guide was then used to drill and place appropriately lengthed inferior, superior, anterior, and posterior screws. The [id number] reamer was used to confirm adequate peripheral reaming. The glenosphere was applied with the rotary swaging machine operator and then impacted to engage the Vee taper. It was then locked with appropriate countersinking of the setscrew. The glenosphere was inspected and found to have good fit, appropriate positioning, and no soft tissue or bony impingement. Attention was then turned back to the proximal humerus. The humeral trial cup was connected. Trialing was commenced with +3 mm liner. The shoulder was reduced and taken through range of motion. Trial components were built up to +3 mm liner to achieve excellent stability and good tension on the deltoid and conjoined tension. The trial components were removed from the proximal humerus. The wound was copiously irrigated with normal saline. A 2 mm drill was used to drill 2 drill holes in the bicipital groove for later subscapularis repair. The the proximal humeral stem and suture cup were assembled and brought over the proximal humerus. Suture tapes were placed superiorly inferiorly at the medial and lateral aspect of the suture cup. The lateral tapes were brought out the drill holes. A small amount of vancomycin powder was distributed in the proximal humerus. The humeral component and suture cup were impacted into place. The trial liner was added, and the shoulder was reduced and range of motion, stability, and tension confirmed to be appropriate. The final liner was then connected, and range of motion, stability, and tension confirmed. The shoulder was copiously irrigated with Betadine and normal saline. Vancomycin powder was distributed deeply about the shoulder and through subcutaneous tissues. The arm was placed in about 30 degrees of external rotation. The subscapularis was reduced and repaired using the pairs of SutureTape in a speed bridge type configuration. The arm was taken into more external rotation without any displacement of the subscapularis repair. The deltopectoral interval was approximated with 2-0 Monocryl burying the intact cephalic vein. Subcutaneous tissue was irrigated then closed using 2-0 Monocryl in a buried interrupted fashion. Skin was closed using 3-0 Monocryl in a buried subcuticular fashion. Skin glue was applied to the incision. A silver impregnated bandage was placed over the incision. The extremity was placed into a shoulder immobilizer. The patient awoke from anesthesia without complication and was taken to the recovery room in stable condition. Date of Procedure: 08/22/24
--- NOTE | 2024-08-22 11:30 | DI.RAD_ITS ---
Exam(s) XR SHOULDER RT COMPLETE 2+V EXAM: XR SHOULDER RT COMPLETE 2+V CLINICAL HISTORY: shoulder arthritis. TECHNIQUE: 2D digital imaging was performed. COMPARISON: CR XR SHOULDER LT COMPLETE 2+V from 11/20/2023 FINDINGS: Two postop views There is satisfactory position alignment of the newly placed reverse prosthesis components. No fract ure or loosening evident. IMPRESSION: Satisfactory postop appearance. DATA REPOSITORY: RADIATION DOSE DELIVERED:
[2024-08-22] MEDS: ceFAZolin 1 GM/50 ML BAG IVPB (11:49)
--- NOTE | 2024-08-22 12:34 | W.ANESPOSTOP ---
Postoperative Evaluation Date, Time and Location Date Performed: 08/22/24 Time Performed: 12:31 Patient Location: PACU Vital Signs Most Recent Imported Vital Signs: Most Recent Vital Signs Temp Pulse Resp BP Pulse Ox 36.5 C 74 21 142/79 H 94 08/22/24 11:55 08/22/24 12:26 08/22/24 12:26 08/22/24 12:25 08/22/24 12:26 Pain Score Most Recent Pain Score: Most Recent Pain Score Pain Level 2 08/22/24 12:20 Assessment Mental Status: Awake (Alert & Oriented to Patient Baseline) Airway and Respiratory Function: Patent airway with normal (patient baseline) respiratory exam Cardiovascular Function: Hemodynamically Stable Hydration Status: Adequately Hydrated Nausea & Vomiting: No Nausea or Vomiting Pain: Pain is tolerable per patient Peripheral Nerve Block: Regional nerve block not resolved at time of post operative discharge
[2024-08-22] MEDS: Lactobacillus Acidophilus CAP 1 CAP PO (13:44)
[2024-08-22] MEDS: oxyCODONE 5 MG TAB PO (13:45)
== END 2024-08-22 15:05 | disposition home or self-care (01) ==
LOC: SUR 05:56 → DSU 07:01 → SUR 07:03
PROVIDERS: PCP Nurse Practitioner Family; Visit Provider Student in an Organized Health Care Education/Training Program
PROC: (CPT 23472; principal; 2024-08-22 07:30)
DX: M75.101 Unspecified rotator cuff tear or rupture of right shoulder, not specified as traumatic (principal); M75.21 Bicipital tendinitis, right shoulder; G89.18 Other acute postprocedural pain
CPT/HCPCS: 23472; 23430; C1776; 64415; 64450; 73030; J0131; J0665; J0666; J0690; J1100; J1885; J2003; J2250; J2371; J2405; J2704; J3370

== ENCOUNTER 2024-09-02 10:52 | Outpatient (CLI) | payer MEDICARE, SELFPAY ==
--- NOTE | 2024-09-02 10:30 | DI.RAD_ITS ---
Exam(s) XR SHOULDER RT COMPLETE 2+V EXAM: XR SHOULDER RT COMPLETE 2+V CLINICAL HISTORY: F/U RIGHT RTSA. TECHNIQUE: 2D digital imaging was performed. Two images were obtained. Grashey and Y views were obt ained. COMPARISON: CR XR SHOULDER RT COMPLETE 2+V from 08/22/2024 FINDINGS: BONES: There are stable post operative changes of a right total reverse shoulder arthroplasty present . No fracture or dislocation. JOINTS: The orthopedic hardware is in good position. No evidence of hardware loosening. There are d egenerative changes seen at the acromioclavicular joint. SOFT TISSUE: Normal. IMPRESSION: Stable right reverse total shoulder arthroplasty. DATA REPOSITORY: RADIATION DOSE DELIVERED:
== END 2024-09-02 10:53 | disposition home or self-care (01) ==
LOC: DIORS 10:52
PROVIDERS: PCP Nurse Practitioner Family; Referring Provider Nurse Practitioner Family; Visit Provider Student in an Organized Health Care Education/Training Program
DX: M75.101 Unspecified rotator cuff tear or rupture of right shoulder, not specified as traumatic (principal); Z47.89 Encounter for other orthopedic aftercare
CPT/HCPCS: 99024; 73030

== ENCOUNTER → 2024-10-28 10:26 | Outpatient (BNVA) | payer MEDICARE, SELFPAY | PROVIDERS: PCP Nurse Practitioner Family; Visit Provider Student in an Organized Health Care Education/Training Program | DX: Z47.1 Aftercare following joint replacement surgery (principal); M75.101 Unspecified rotator cuff tear or rupture of right shoulder, not specified as traumatic | CPT/HCPCS: 99024 ==

== ENCOUNTER 2025-01-20 11:11 | Outpatient (CLI) | payer MEDICARE, SELFPAY ==
--- NOTE | 2025-01-20 08:30 | DI.RAD_ITS ---
Exam(s) XR SHOULDER RT COMPLETE 2+V EXAM: XR SHOULDER RT COMPLETE 2+V CLINICAL HISTORY: F/U RIGHT RTSA. TECHNIQUE: 2D digital imaging was performed. Two images were obtained. Grashey and Y views were obtained. COMPARISON: CR XR SHOULDER RT COMPLETE 2+V from 09/02/2024 FINDINGS: BONES: There are stable post operative changes of a right reverse total shoulder arthroplasty present. No fracture or dislocation. JOINTS: The orthopedic hardware is in good position. No evidence of hardware loosening. There are degenerative changes seen at the acromioclavicular joint. SOFT TISSUE: Normal. IMPRESSION: Stable right reverse total shoulder arthroplasty. DATA REPOSITORY: RADIATION DOSE DELIVERED:
== END 2025-01-20 11:12 | disposition home or self-care (01) ==
LOC: DIORS 11:11
PROVIDERS: PCP Nurse Practitioner Family; Referring Provider Nurse Practitioner Family; Visit Provider Student in an Organized Health Care Education/Training Program
DX: M75.101 Unspecified rotator cuff tear or rupture of right shoulder, not specified as traumatic (principal); M65.341 Trigger finger, right ring finger; M25.561 Pain in right knee; Z96.611 Presence of right artificial shoulder joint
CPT/HCPCS: 99214; 73030

== ENCOUNTER 2025-02-11 10:27 | Outpatient (CLI) | payer MEDICARE, SELFPAY ==
--- NOTE | 2025-02-11 08:45 | DI.RAD_ITS ---
Exam(s) XR KNEE RT 3V AP,LAT,MARY EXAM: XR KNEE RT 3V AP,LAT,MARY CLINICAL HISTORY: RIGHT KNEE PAIN. TECHNIQUE: 2D digital imaging was performed of the right knee. Three views obtained. Merchant, AP and lateral views were obtained. COMPARISON: No exams were available for comparison FINDINGS: BONES: No acute fracture is present. No bony destructive lesion is seen. JOINTS: The joint spaces are well maintained. There does appear to be a very small joint effusion. SOFT TISSUE: There is soft tissue swelling anterior to the patella. IMPRESSION: 1. Soft tissue swelling anterior to the patella. 2. Tiny joint effusion. DATA REPOSITORY: RADIATION DOSE DELIVERED:
== END 2025-02-11 10:28 | disposition home or self-care (01) ==
LOC: DIORS 10:27
PROVIDERS: PCP Nurse Practitioner Family; Referring Provider Nurse Practitioner Family; Visit Provider Student in an Organized Health Care Education/Training Program
DX: M25.561 Pain in right knee (principal); M62.89 Other specified disorders of muscle
CPT/HCPCS: 99213; 73562